=== PATIENT | male | born 1960 | race Caucasian/White ===

== ENCOUNTER 2020-06-07 17:35 | Inpatient (IN) | payer BC, SELFPAY ==
[2020-06-07 17:51] VITALS: BP 119/81; PULSE 88; RESP 16; TEMP 36.3; O2SAT 94
[2020-06-07 17:56] VITALS: BMI 26.9
[2020-06-07 18:09] VITALS: BMI 26.9
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
[2020-06-07] MEDS: Haloperidol Lactate 10 MG/5 ML UDC 2 MG NG (21:28)
[2020-06-07] MEDS: Latanoprost 0.005% 1 Bottle 1 DRP EACH EYE (21:47)
[2020-06-07] MEDS: Jevity 1.5 1,000 ML 70 ML GT (21:47)
[2020-06-08] MEDS: Famotidine 20 MG Tablet NG ×2 (05:28→18:29)
[2020-06-08] MEDS: amLODIPine 5 MG Tablet NG (05:28)
[2020-06-08] MEDS: Valproic Acid 250 MG/5 ML UDC NG ×2 (05:28→18:28)
[2020-06-08] MEDS: Clopidogrel Bisulfate 75 MG Tablet NG (05:28)
[2020-06-08] MEDS: levETIRAcetam Oral Solution 500 MG/5 ML 1000 MG GT ×2 (05:29→18:27)
[2020-06-08] MEDS: Haloperidol Lactate 10 MG/5 ML UDC 2 MG NG ×3 (05:29→22:15)
[2020-06-08] MEDS: Senna/Docusate Sodium 1 Tablet GT ×2 (05:30→18:28)
[2020-06-08] MEDS: Polyethylene Glycol 3350 17 GM PACKET GT (05:30)
[2020-06-08 05:33] VITALS: BP 154/98; PULSE 102; RESP 18; TEMP 36.8; O2SAT 95
[2020-06-08] MEDS: Metoprolol Tartrate 50 MG Tablet PO ×2 (05:33→18:29)
[2020-06-08 05:40] LABS: Absolute Neutrophil Count 4.6 X10^3/uL (2.0-7.7); Basophil# 0.04 X10^3/uL; Basophil% 0.5 % (0-1); Eosinophil# 0.18 X10^3/uL; Eosinophils% 2.2 % (0-5); Hematocrit 40.6 % (40-54); Hemoglobin 12.5 g/dL (13.0-16.5); Lymphocyte % 30.9 % (19-41); Mean Corp Hgb Conc 30.8 g/dL (32-36); Mean Corpuscular Hgb 27.2 pg (27.0-32.0); Mean Corpuscular Volume 88.5 fL (80-94); Monocyte% 9.9 % (0-10); NRBC Flagged by Analyzer 0 % (0-5); Neutrophil # 4.56 X10^3/uL (2.7-7.7); Neutrophil % 56.4 % (47-70); Platelet Count 380 K/mm3 (150-450); RBC Distribution Width SD 41.7 fl (35.1-43.9); Red Blood Count 4.59 M/mm3 (4.6-6.2); White Blood Count 8.1 K/mm3 (4.4-11.0)
[2020-06-08 05:58] LABS: Anion Gap 4 (5-15); BUN 20 mg/dL (7-18); BUN/Creat Ratio 24.9 RATIO (10-20); Calcium,Total 8.7 mg/dL (8.5-10.1); Chloride 104 mmol/L (98-107); EST Glomerular Filtration Rate 105 mL/min (>60); Est Glom Filt Rate - Afr Amer 127 mL/min (>60); Estimated Creatinine Clearance 110.47 ml/min; Glucose 124 mg/dL (74-106); Sodium Level 137 mmol/L (136-145)
[2020-06-08 06:38] LABS: Probe Check PASS; Specimen Processing Control PASS
--- NOTE | 2020-06-08 08:42 | NURSING ---
Surgical Tech Note: Called resident's sonBigg to gather information for activity assessment and review visitation policy. See activity assessment.
--- NOTE | 2020-06-08 09:46 | CASEMGMT ---
Social Work Unable to complete admission assessment with pt. Information gathered was from son. Could not discuss code status or MOLST form with patient. No POA on file. Teri Gardner, CEASAR TYSONW
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
[2020-06-08] MEDS: Tuberculin,Purif.prot.deriv. 50 TU/ML Vial 5 ML ID (10:05)
--- NOTE | 2020-06-08 11:39 | NURSING ---
Director Of Analytical Development Note: Facetime call with Resident to sonBigg. Res smiled, verbalized, Big dog- nickname for son. Verblized I love you man. Son thankful for call.
[2020-06-08] MEDS: Jevity 1.5 1,000 ML 70 ML GT (13:07)
[2020-06-08 14:25] VITALS: BP 137/73; PULSE 82; RESP 16; TEMP 36.9; O2SAT 97
--- NOTE | 2020-06-08 15:24 | CHAPLAIN ---
Type of Pastoral Visit _x__ Initial Visit ___ Follow-up Visit ___ On-call Visit ___ General Patient Visit ___ Spiritual Assessment ___ Family Conference ___ Bereavement ___ Rapid Response ___ Code Blue ___ Other (describe below) Pastoral Care Referral From _x__ Patient ___ Family ___ Nurse ___ Physician ___ Machine Set Up Operator Paper Goods ___ Entry Level Marketing Assistant ___ Other (describe below) Sacrament/Intervention ___ Active listening ___ Anointing ___ Mormonism ___ Bereavement ___ Communion ___ Laura exploration ___ ___ Life review ___ Prayer ___ Reconciliation ___ Sacrament of Sick _x__ Supportive presence ___ Wedding ___ Other (describe below) Pastoral Comments patient opened eyes at call of his name; pt did not engage in conversation but did respond to two questions with day by day and do what you want; gave time for patient to contribute to conversation; repeated offer of presence and support to pt now and for the future
[2020-06-08 18:29] VITALS: PULSE 82
[2020-06-08] MEDS: Latanoprost 0.005% 1 Bottle 1 DRP EACH EYE (22:14)
[2020-06-09 00:40] LABS: Bedside Glucose 131 mg/dL (70-110)
[2020-06-09 06:16] VITALS: BP 155/89; PULSE 88; RESP 16; TEMP 36.8; O2SAT 95
[2020-06-09] MEDS: Valproic Acid 250 MG/5 ML UDC NG ×2 (06:21→17:18)
[2020-06-09] MEDS: amLODIPine 5 MG Tablet NG (06:22)
[2020-06-09] MEDS: levETIRAcetam Oral Solution 500 MG/5 ML 1000 MG GT ×2 (06:22→17:18)
[2020-06-09] MEDS: Clopidogrel Bisulfate 75 MG Tablet NG (06:22)
[2020-06-09 06:23] VITALS: BP 155/89; PULSE 88
[2020-06-09] MEDS: Haloperidol Lactate 10 MG/5 ML UDC 2 MG NG ×3 (06:23→21:14)
[2020-06-09] MEDS: Famotidine 20 MG Tablet NG ×2 (06:23→17:20)
[2020-06-09] MEDS: Metoprolol Tartrate 50 MG Tablet GT ×2 (06:23→17:19)
[2020-06-09] MEDS: Menthol/Lanolin/Calamine/Znox 113 GM Tube 1 APPLIC TOPICAL ×2 (06:29→21:14)
[2020-06-09] MEDS: Jevity 1.5 1,000 ML 70 ML GT ×2 (06:33→23:56)
[2020-06-09 06:35] LABS: Bedside Glucose 119 mg/dL (70-110)
[2020-06-09 14:30] VITALS: BP 132/83; PULSE 85; RESP 18; TEMP 36; O2SAT 96
[2020-06-09 17:19] VITALS: BP 132/83; PULSE 85
[2020-06-09] MEDS: Latanoprost 0.005% 1 Bottle 1 DRP EACH EYE (21:13)
[2020-06-09 23:07] VITALS: PULSE 84; RESP 16; O2SAT 95
[2020-06-10] MEDS: levETIRAcetam Oral Solution 500 MG/5 ML 1000 MG GT ×2 (06:25→17:46)
[2020-06-10] MEDS: Haloperidol Lactate 10 MG/5 ML UDC 2 MG NG ×3 (06:26→22:17)
[2020-06-10 06:27] VITALS: BP 141/93; PULSE 98
[2020-06-10] MEDS: Metoprolol Tartrate 50 MG Tablet GT ×2 (06:27→17:45)
[2020-06-10] MEDS: Famotidine 20 MG Tablet NG ×2 (06:27→17:45)
[2020-06-10] MEDS: Clopidogrel Bisulfate 75 MG Tablet NG (06:27)
[2020-06-10] MEDS: amLODIPine 5 MG Tablet NG (06:27)
[2020-06-10] MEDS: Valproic Acid 250 MG/5 ML UDC NG ×2 (06:27→17:47)
[2020-06-10 06:30] LABS: Bedside Glucose 120 mg/dL (70-110)
[2020-06-10] MEDS: Nystatin Powder 15gm Bottle 1 APPLIC TOPICAL ×2 (06:35→22:25)
[2020-06-10] MEDS: Menthol/Lanolin/Calamine/Znox 113 GM Tube 1 APPLIC TOPICAL ×3 (06:37→22:25)
[2020-06-10 06:38] VITALS: RESP 16; TEMP 36.6; O2SAT 94
--- NOTE | 2020-06-10 11:06 | NURSING ---
up dated son and son also talked to his dad on phone.
[2020-06-10 12:45] VITALS: PULSE 83; RESP 18; O2SAT 96
--- NOTE | 2020-06-10 14:02 | PCA ---
Called to schedule appointment with Dr. Adrien Genao (neurosurgery). Per office only need appointment if there is an issue. As needed. Nursing aware
[2020-06-10 14:03] VITALS: BP 135/79; PULSE 83; RESP 17; TEMP 36.8; O2SAT 97
--- NOTE | 2020-06-10 14:09 | NURSING ---
8mg of haloperidol wasted in destroyer due to order only called for 2mg. witnessed by armando berg
[2020-06-10] MEDS: Jevity 1.5 1,000 ML 70 ML GT (16:09)
[2020-06-10 17:45] VITALS: BP 135/79; PULSE 83
[2020-06-10] MEDS: Latanoprost 0.005% 1 Bottle 1 DRP EACH EYE (22:17)
[2020-06-11 06:00] VITALS: RESP 16; TEMP 37.2; O2SAT 93
[2020-06-11] MEDS: Haloperidol Lactate 10 MG/5 ML UDC 2 MG NG ×2 (06:24→13:05)
[2020-06-11] MEDS: Valproic Acid 250 MG/5 ML UDC NG (06:24)
[2020-06-11] MEDS: Famotidine 20 MG Tablet NG (06:24)
[2020-06-11 06:25] VITALS: BP 140/89; PULSE 84
[2020-06-11] MEDS: amLODIPine 5 MG Tablet NG (06:25)
[2020-06-11] MEDS: Metoprolol Tartrate 50 MG Tablet GT ×2 (06:25→17:31)
[2020-06-11] MEDS: levETIRAcetam Oral Solution 500 MG/5 ML 1000 MG GT ×2 (06:25→17:30)
[2020-06-11] MEDS: Nystatin Powder 15gm Bottle 1 APPLIC TOPICAL ×2 (06:25→20:57)
[2020-06-11] MEDS: Clopidogrel Bisulfate 75 MG Tablet NG (06:26)
[2020-06-11 06:30] LABS: Bedside Glucose 135 mg/dL (70-110)
[2020-06-11] MEDS: Jevity 1.5 1,000 ML 70 ML GT (06:37)
--- NOTE | 2020-06-11 07:29 | NURSING ---
Dr. Clark notified of patient continuing to have loose stools with the tube feed. New orders given for KUB.
--- NOTE | 2020-06-11 07:31 | RAD_ITS ---
STUDY: X-RAY - ABDOMEN/PELVIS REASON FOR EXAM: Male, 59 years old. DIARRHEA TECHNIQUE: Single AP view of the abdomen / pelvis. COMPARISON: None. FINDINGS: Percutaneous gastrostomy tube. Inferior vena cava filter. There is an unremarkable bowel gas pattern. The visualized liver, spleen and kidneys are grossly normal in size and morphology. Normal soft tissue structures. Normal visualized osseous structures. RAD/Abdomen Single View (Portable) IMPRESSION: Normal x-ray examination of the abdomen and pelvis. Electronically Signed: Ron Lowery MD at 9:00 EDT Tel , Service support ,
[2020-06-11 13:47] VITALS: BP 121/87; PULSE 90; RESP 18; TEMP 36.7; O2SAT 97
--- NOTE | 2020-06-11 13:54 | NURSING ---
Staff assisted with facetime with patient's son
[2020-06-11] MEDS: Valproic Acid 250 MG/5 ML UDC GT (17:30)
[2020-06-11 17:31] VITALS: BP 143/89; PULSE 88
[2020-06-11] MEDS: Famotidine 20 MG Tablet GT (17:31)
[2020-06-11] MEDS: Menthol/Lanolin/Calamine/Znox 113 GM Tube 1 APPLIC TOPICAL (20:56)
[2020-06-11] MEDS: Latanoprost 0.005% 1 Bottle 1 DRP EACH EYE (20:59)
[2020-06-11] MEDS: Haloperidol Lactate 10 MG/5 ML UDC 2 MG GT (21:01)
[2020-06-11 21:05] VITALS: PULSE 76; RESP 16; O2SAT 95
[2020-06-12] MEDS: Jevity 1.5 1,000 ML 70 ML GT ×2 (01:27→18:26)
[2020-06-12 04:02] VITALS: BP 147/95; PULSE 85; RESP 16; TEMP 36.7; O2SAT 96
[2020-06-12] MEDS: levETIRAcetam Oral Solution 500 MG/5 ML 1000 MG GT ×2 (04:07→18:33)
[2020-06-12] MEDS: amLODIPine 5 MG Tablet GT (04:07)
[2020-06-12 04:08] VITALS: BP 147/95; PULSE 85
[2020-06-12] MEDS: Famotidine 20 MG Tablet GT ×2 (04:08→18:32)
[2020-06-12] MEDS: Valproic Acid 250 MG/5 ML UDC GT ×2 (04:08→18:33)
[2020-06-12] MEDS: Clopidogrel Bisulfate 75 MG Tablet GT (04:08)
[2020-06-12] MEDS: Metoprolol Tartrate 50 MG Tablet GT ×2 (04:08→18:33)
[2020-06-12] MEDS: Haloperidol Lactate 10 MG/5 ML UDC 2 MG GT ×3 (04:09→20:19)
[2020-06-12] MEDS: Nystatin Powder 15gm Bottle 1 APPLIC TOPICAL ×2 (04:10→20:21)
[2020-06-12] MEDS: Menthol/Lanolin/Calamine/Znox 113 GM Tube 1 APPLIC TOPICAL ×2 (04:10→20:20)
[2020-06-12 06:15] LABS: Bedside Glucose 131 mg/dL (70-110)
[2020-06-12 14:04] VITALS: BP 131/74; PULSE 92; RESP 18; TEMP 36.6; O2SAT 94
--- NOTE | 2020-06-12 16:37 | NURSING ---
This nurse is aware of Vital Signs that were taken today around 1400.
[2020-06-12 18:33] VITALS: PULSE 92
[2020-06-12] MEDS: Latanoprost 0.005% 1 Bottle 1 DRP EACH EYE (20:21)
[2020-06-13 04:44] VITALS: BP 144/89; PULSE 88; RESP 16; TEMP 36.7; O2SAT 95
[2020-06-13] MEDS: Haloperidol Lactate 10 MG/5 ML UDC 2 MG GT ×3 (04:46→21:49)
[2020-06-13 04:47] VITALS: BP 144/89; PULSE 88
[2020-06-13] MEDS: levETIRAcetam Oral Solution 500 MG/5 ML 1000 MG GT ×2 (04:47→18:34)
[2020-06-13] MEDS: Metoprolol Tartrate 50 MG Tablet GT ×2 (04:47→18:35)
[2020-06-13] MEDS: Valproic Acid 250 MG/5 ML UDC GT ×2 (04:48→18:36)
[2020-06-13] MEDS: amLODIPine 5 MG Tablet GT (04:48)
[2020-06-13] MEDS: Clopidogrel Bisulfate 75 MG Tablet GT (04:48)
[2020-06-13] MEDS: Famotidine 20 MG Tablet GT ×2 (04:48→18:36)
[2020-06-13] MEDS: Menthol/Lanolin/Calamine/Znox 113 GM Tube 1 APPLIC TOPICAL ×2 (04:59→21:48)
[2020-06-13] MEDS: Nystatin Powder 15gm Bottle 1 APPLIC TOPICAL ×2 (04:59→21:49)
[2020-06-13 06:21] LABS: Bedside Glucose 142 mg/dL (70-110)
[2020-06-13] MEDS: Jevity 1.5 1,000 ML 70 ML GT (10:04)
[2020-06-13 13:32] VITALS: BP 131/77; PULSE 89; RESP 18; TEMP 36.6; O2SAT 93
[2020-06-13 18:35] VITALS: BP 131/77; PULSE 89
[2020-06-13] MEDS: Latanoprost 0.005% 1 Bottle 1 DRP EACH EYE (21:48)
[2020-06-13 22:06] VITALS: PULSE 78; RESP 16; O2SAT 94
[2020-06-14] MEDS: Jevity 1.5 1,000 ML 70 ML GT ×2 (01:49→18:45)
[2020-06-14] MEDS: levETIRAcetam Oral Solution 500 MG/5 ML 1000 MG GT ×2 (05:39→18:39)
[2020-06-14] MEDS: Valproic Acid 250 MG/5 ML UDC GT ×2 (05:40→18:39)
[2020-06-14] MEDS: Haloperidol Lactate 10 MG/5 ML UDC 2 MG GT ×3 (05:40→22:36)
[2020-06-14 05:41] VITALS: BP 132/75; PULSE 86
[2020-06-14] MEDS: Metoprolol Tartrate 50 MG Tablet GT ×2 (05:41→18:40)
[2020-06-14] MEDS: Famotidine 20 MG Tablet GT ×2 (05:41→18:40)
[2020-06-14] MEDS: Clopidogrel Bisulfate 75 MG Tablet GT (05:41)
[2020-06-14] MEDS: amLODIPine 5 MG Tablet GT (05:41)
[2020-06-14] MEDS: Menthol/Lanolin/Calamine/Znox 113 GM Tube 1 APPLIC TOPICAL ×2 (05:45→22:36)
[2020-06-14] MEDS: Nystatin Powder 15gm Bottle 1 APPLIC TOPICAL ×2 (05:45→22:37)
[2020-06-14 05:46] VITALS: RESP 16; TEMP 37; O2SAT 96
[2020-06-14 09:10] LABS: Bedside Glucose 142 mg/dL (70-110)
[2020-06-14 13:00] VITALS: PULSE 73; RESP 18; O2SAT 94
--- NOTE | 2020-06-14 13:19 | MDS.RN ---
attempted to completed pain interview for MDS, resident not verbally responding to questions, will complete staff assessment for pain.
[2020-06-14 13:48] VITALS: BP 118/75; PULSE 88; RESP 15; TEMP 36.6; O2SAT 97
--- NOTE | 2020-06-14 14:13 | NURSING ---
wound photo: back
--- NOTE | 2020-06-14 16:50 | NURSING ---
son called in and this nurse gave up date and handed phone to pt to talk to son.
[2020-06-14 18:40] VITALS: BP 118/75; PULSE 88
[2020-06-14] MEDS: Latanoprost 0.005% 1 Bottle 1 DRP EACH EYE (22:36)
[2020-06-15 05:00] VITALS: TEMP 36.6; O2SAT 94
[2020-06-15 05:49] LABS: Absolute Lymphocyte Count 2.31 X10^3/uL (0.83-4.51); Absolute Neutrophil Count 5.5 X10^3/uL (2.0-7.7); Basophil# 0.06 X10^3/uL; Basophil% 0.7 % (0-1); Eosinophil# 0.19 X10^3/uL; Eosinophils% 2.1 % (0-5); Hematocrit 42.7 % (40-54); Hemoglobin 13.2 g/dL (13.0-16.5); Lymphocyte # 2.31 X10^3/ul (4.0); Lymphocyte % 25.4 % (19-41); Mean Corp Hgb Conc 30.9 g/dL (32-36); Mean Corpuscular Volume 87.3 fL (80-94); Mean Platelet Vol. 10.4 fl (6.2-12.0); Monocyte# 1.01 X10^3/uL; Monocyte% 11.1 % (0-10); NRBC Flagged by Analyzer 0 % (0-5); Neutrophil # 5.49 X10^3/uL (2.7-7.7); Neutrophil % 60.5 % (47-70); Platelet Count 308 K/mm3 (150-450); RBC Distribution Width CV 13.2 % (11.6-14.6); Red Blood Count 4.89 M/mm3 (4.6-6.2); White Blood Count 9.1 K/mm3 (4.4-11.0)
[2020-06-15 06:26] LABS: Bedside Glucose 132 mg/dL (70-110)
[2020-06-15 06:30] LABS: Anion Gap 4 (5-15); BUN 18 mg/dL (7-18); BUN/Creat Ratio 23.3 RATIO (10-20); Calcium,Total 8.7 mg/dL (8.5-10.1); Chloride 106 mmol/L (98-107); Creatinine, Serum 0.77 mg/dL (0.70-1.30); EST Glomerular Filtration Rate 109 mL/min (>60); Est Glom Filt Rate - Afr Amer 132 mL/min (>60); Estimated Creatinine Clearance 114.78 ml/min; Glucose 107 mg/dL (74-106); Potassium 3.9 mmol/L (3.5-5.1); Sodium Level 139 mmol/L (136-145)
[2020-06-15 06:50] VITALS: BP 129/78; PULSE 92
[2020-06-15] MEDS: amLODIPine 5 MG Tablet GT (06:50)
[2020-06-15] MEDS: Valproic Acid 250 MG/5 ML UDC GT ×2 (06:50→18:01)
[2020-06-15] MEDS: Haloperidol Lactate 10 MG/5 ML UDC 2 MG GT ×3 (06:50→22:38)
[2020-06-15] MEDS: Metoprolol Tartrate 50 MG Tablet GT ×2 (06:50→18:02)
[2020-06-15] MEDS: levETIRAcetam Oral Solution 500 MG/5 ML 1000 MG GT ×2 (06:50→18:00)
[2020-06-15] MEDS: Famotidine 20 MG Tablet GT ×2 (06:50→18:01)
[2020-06-15] MEDS: Clopidogrel Bisulfate 75 MG Tablet GT (06:50)
[2020-06-15] MEDS: Menthol/Lanolin/Calamine/Znox 113 GM Tube 1 APPLIC TOPICAL ×2 (06:58→22:37)
[2020-06-15] MEDS: Nystatin Powder 15gm Bottle 1 APPLIC TOPICAL ×2 (06:58→22:39)
[2020-06-15] MEDS: Tuberculin,Purif.prot.deriv. 50 TU/ML Vial 5 ML ID (10:48)
[2020-06-15] MEDS: Jevity 1.5 1,000 ML 70 ML GT (10:49)
[2020-06-15 13:20] VITALS: BP 130/75; PULSE 86; RESP 18; TEMP 37.3; O2SAT 96
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
[2020-06-15 18:02] VITALS: PULSE 85
[2020-06-15] MEDS: Latanoprost 0.005% 1 Bottle 1 DRP EACH EYE (22:38)
[2020-06-15 22:40] VITALS: PULSE 74; RESP 16; O2SAT 97
[2020-06-16 04:00] VITALS: BP 133/81; PULSE 96; RESP 16; TEMP 36.6; O2SAT 95
[2020-06-16] MEDS: levETIRAcetam Oral Solution 500 MG/5 ML 1000 MG GT ×2 (04:04→18:00)
[2020-06-16] MEDS: Haloperidol Lactate 10 MG/5 ML UDC 2 MG GT ×3 (04:04→22:58)
[2020-06-16] MEDS: Valproic Acid 250 MG/5 ML UDC GT ×2 (04:05→18:00)
[2020-06-16] MEDS: amLODIPine 5 MG Tablet GT (04:05)
[2020-06-16] MEDS: Famotidine 20 MG Tablet GT ×2 (04:05→18:02)
[2020-06-16 04:06] VITALS: BP 133/81; PULSE 96
[2020-06-16] MEDS: Clopidogrel Bisulfate 75 MG Tablet GT (04:06)
[2020-06-16] MEDS: Menthol/Lanolin/Calamine/Znox 113 GM Tube 1 APPLIC TOPICAL ×2 (04:06→22:58)
[2020-06-16] MEDS: Metoprolol Tartrate 50 MG Tablet GT ×2 (04:06→18:02)
[2020-06-16] MEDS: Nystatin Powder 15gm Bottle 1 APPLIC TOPICAL ×2 (04:07→22:57)
[2020-06-16] MEDS: Jevity 1.5 1,000 ML 70 ML GT (04:11)
[2020-06-16 07:01] LABS: Bedside Glucose 113 mg/dL (70-110)
[2020-06-16 15:19] VITALS: BP 127/80; PULSE 98; RESP 16; TEMP 36.3; O2SAT 96
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
--- NOTE | 2020-06-16 16:32 | NURSING ---
N.O. 1 assist feed, pureed diet thin liquids. shipping and receiving assistant aware and will follow up with [facility] orders
[2020-06-16 16:46] VITALS: BMI 26.5
[2020-06-16 18:02] VITALS: PULSE 98
[2020-06-16] MEDS: Juven (unflavored) Packet 1 PACKET PO (18:33)
[2020-06-16 20:06] VITALS: PULSE 78; RESP 16; O2SAT 95
[2020-06-16] MEDS: Latanoprost 0.005% 1 Bottle 1 DRP EACH EYE (22:58)
[2020-06-17 04:44] VITALS: BP 131/86; PULSE 90; RESP 18; TEMP 36.6; O2SAT 94
[2020-06-17] MEDS: levETIRAcetam 1,000 MG Tablet 1000 MG PO ×2 (04:46→17:02)
[2020-06-17] MEDS: Haloperidol 1 MG Tablet 2 MG PO ×3 (04:46→22:36)
[2020-06-17] MEDS: Clopidogrel Bisulfate 75 MG Tablet PO (04:47)
[2020-06-17] MEDS: Famotidine 20 MG Tablet PO ×2 (04:47→17:01)
[2020-06-17] MEDS: Valproic Acid 250 MG/5 ML UDC PO ×2 (04:47→17:01)
[2020-06-17] MEDS: amLODIPine 5 MG Tablet PO (04:47)
[2020-06-17 04:48] VITALS: BP 131/86; PULSE 90
[2020-06-17] MEDS: Metoprolol Tartrate 50 MG Tablet PO ×2 (04:48→17:01)
[2020-06-17] MEDS: Nystatin Powder 15gm Bottle 1 APPLIC TOPICAL ×2 (04:50→22:35)
[2020-06-17] MEDS: Menthol/Lanolin/Calamine/Znox 113 GM Tube 1 APPLIC TOPICAL ×2 (04:50→22:35)
[2020-06-17 06:21] LABS: Bedside Glucose 103 mg/dL (70-110)
[2020-06-17] MEDS: Juven (unflavored) Packet 1 PACKET PO ×2 (07:57→17:01)
[2020-06-17] MEDS: Jevity 1.5. 1,000 ML Bottle 400 ML GT ×3 (09:42→22:43)
[2020-06-17 10:00] VITALS: PULSE 78; RESP 16
[2020-06-17 14:07] VITALS: BP 128/82; PULSE 110; RESP 16; TEMP 36.8; O2SAT 94
[2020-06-17 17:01] VITALS: PULSE 110
[2020-06-17] MEDS: Latanoprost 0.005% 1 Bottle 1 DRP EACH EYE (22:36)
[2020-06-18 05:00] VITALS: BP 132/95; PULSE 87; RESP 16; TEMP 36.9; O2SAT 96
[2020-06-18] MEDS: Nystatin Powder 15gm Bottle 1 APPLIC TOPICAL ×2 (05:08→22:18)
[2020-06-18] MEDS: Menthol/Lanolin/Calamine/Znox 113 GM Tube 1 APPLIC TOPICAL ×2 (05:08→22:18)
[2020-06-18 05:09] VITALS: BP 132/95; PULSE 87
[2020-06-18] MEDS: Valproic Acid 250 MG/5 ML UDC PO ×2 (05:09→17:00)
[2020-06-18] MEDS: amLODIPine 5 MG Tablet PO (05:09)
[2020-06-18] MEDS: Clopidogrel Bisulfate 75 MG Tablet PO (05:09)
[2020-06-18] MEDS: Famotidine 20 MG Tablet PO ×2 (05:09→16:59)
[2020-06-18] MEDS: levETIRAcetam 1,000 MG Tablet 1000 MG PO ×2 (05:09→16:59)
[2020-06-18] MEDS: Metoprolol Tartrate 50 MG Tablet PO ×2 (05:09→16:59)
[2020-06-18] MEDS: Haloperidol 1 MG Tablet 2 MG PO ×3 (05:10→22:19)
[2020-06-18 06:25] LABS: Bedside Glucose 94 mg/dL (70-110)
[2020-06-18] MEDS: Juven (unflavored) Packet 1 PACKET PO ×2 (08:11→16:54)
[2020-06-18] MEDS: Jevity 1.5. 1,000 ML Bottle 400 ML GT ×3 (09:47→18:37)
[2020-06-18 14:52] VITALS: BP 134/77; PULSE 92; RESP 17; TEMP 36.9; O2SAT 96
--- NOTE | 2020-06-18 16:50 | NURSING ---
pt ate less then 50% for breakfast and lunch. bolus of 400 cc and flush 300 given each time. Pt did have residual of 5 at lunch. RN aware.
[2020-06-18 16:59] VITALS: BP 134/77; PULSE 92
--- NOTE | 2020-06-18 19:02 | NURSING ---
pt only ate 25% for supper. 400cc bolus of Jevity given with 300 flush. 0 residual. pt tolerated well.
[2020-06-18] MEDS: Latanoprost 0.005% 1 Bottle 1 DRP EACH EYE (22:18)
[2020-06-19 05:00] VITALS: BP 135/87; PULSE 93; RESP 18; TEMP 37; O2SAT 95
[2020-06-19 06:09] VITALS: BP 135/87; PULSE 93
[2020-06-19] MEDS: Metoprolol Tartrate 50 MG Tablet PO ×2 (06:09→18:12)
[2020-06-19] MEDS: Famotidine 20 MG Tablet PO ×2 (06:09→18:13)
[2020-06-19] MEDS: Clopidogrel Bisulfate 75 MG Tablet PO (06:09)
[2020-06-19] MEDS: Valproic Acid 250 MG/5 ML UDC PO ×2 (06:09→18:12)
[2020-06-19] MEDS: levETIRAcetam 1,000 MG Tablet 1000 MG PO ×2 (06:09→18:12)
[2020-06-19] MEDS: amLODIPine 5 MG Tablet PO (06:09)
[2020-06-19] MEDS: Menthol/Lanolin/Calamine/Znox 113 GM Tube 1 APPLIC TOPICAL ×2 (06:10→21:16)
[2020-06-19] MEDS: Nystatin Powder 15gm Bottle 1 APPLIC TOPICAL ×2 (06:10→21:17)
[2020-06-19] MEDS: Haloperidol 1 MG Tablet 2 MG PO ×3 (06:10→21:18)
[2020-06-19 06:21] LABS: Bedside Glucose 97 mg/dL (70-110)
--- NOTE | 2020-06-19 09:04 | NURSING ---
Dr Clark updated on pt not eating but approx 25% of meals, boluses given per order. New order for remeron 7.5mg qhs
[2020-06-19] MEDS: Juven (unflavored) Packet 1 PACKET PO ×2 (09:29→18:12)
[2020-06-19 09:30] VITALS: PULSE 80; RESP 18; O2SAT 96
[2020-06-19] MEDS: Jevity 1.5. 1,000 ML Bottle 400 ML GT ×2 (09:50→18:37)
--- NOTE | 2020-06-19 10:18 | NURSING ---
pt ate 25% for breakfast. 0 residual, bolus of 400cc of Jevity and 300 flush given. mouth care given. pt tolerated well.
--- NOTE | 2020-06-19 10:58 | NURSING ---
with permission of pt this nurse trimmed pt mustache at lip area due to hairs getting in mouth and food all up in it. pt thanked this nurse.
--- NOTE | 2020-06-19 13:42 | NURSING ---
CALLED PT SON,NO ANSWER. LEFT MESSAGE.
[2020-06-19 14:08] VITALS: BP 124/88; PULSE 108; RESP 16; TEMP 36.2; O2SAT 95
--- NOTE | 2020-06-19 14:52 | NURSING ---
son called back in and this nurse talked to him then gave pt phone to talk to son.
[2020-06-19 18:12] VITALS: BP 124/88; PULSE 108
[2020-06-19] MEDS: Hydrocortisone 2.5% Crm 1 APPLIC TOPICAL (18:32)
[2020-06-19] MEDS: Mirtazapine 15 MG Tablet 7.5 MG PO (21:18)
[2020-06-19] MEDS: Latanoprost 0.005% 1 Bottle 1 DRP EACH EYE (21:19)
[2020-06-20 05:00] VITALS: BP 122/80; PULSE 86; RESP 18; TEMP 36.5; O2SAT 95
[2020-06-20] MEDS: Menthol/Lanolin/Calamine/Znox 113 GM Tube 1 APPLIC TOPICAL ×2 (05:51→21:42)
[2020-06-20] MEDS: Nystatin Powder 15gm Bottle 1 APPLIC TOPICAL ×2 (05:51→21:41)
[2020-06-20 05:52] VITALS: BP 122/80; PULSE 86
[2020-06-20] MEDS: amLODIPine 5 MG Tablet PO (05:52)
[2020-06-20] MEDS: levETIRAcetam 1,000 MG Tablet 1000 MG PO ×2 (05:52→18:09)
[2020-06-20] MEDS: Valproic Acid 250 MG/5 ML UDC PO ×2 (05:52→18:10)
[2020-06-20] MEDS: Metoprolol Tartrate 50 MG Tablet PO ×2 (05:52→18:10)
[2020-06-20] MEDS: Famotidine 20 MG Tablet PO ×2 (05:52→18:10)
[2020-06-20] MEDS: Clopidogrel Bisulfate 75 MG Tablet PO (05:52)
[2020-06-20] MEDS: Haloperidol 1 MG Tablet 2 MG PO ×3 (05:52→21:41)
[2020-06-20 06:16] LABS: Bedside Glucose 98 mg/dL (70-110)
[2020-06-20] MEDS: Juven (unflavored) Packet 1 PACKET PO ×2 (09:05→18:09)
[2020-06-20] MEDS: Jevity 1.5. 1,000 ML Bottle 400 ML GT ×3 (09:06→18:14)
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
[2020-06-20 14:11] VITALS: BP 129/81; PULSE 104; RESP 16; TEMP 36.6; O2SAT 96
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
[2020-06-20 18:10] VITALS: PULSE 104
[2020-06-20] MEDS: Latanoprost 0.005% 1 Bottle 1 DRP EACH EYE (21:41)
[2020-06-20] MEDS: Mirtazapine 15 MG Tablet 7.5 MG PO (21:43)
[2020-06-20 21:49] VITALS: PULSE 77; RESP 16; O2SAT 97
[2020-06-21 05:00] VITALS: RESP 16; TEMP 36.9; O2SAT 94
[2020-06-21] MEDS: Valproic Acid 250 MG/5 ML UDC PO ×2 (05:18→18:16)
[2020-06-21] MEDS: amLODIPine 5 MG Tablet PO (05:18)
[2020-06-21] MEDS: Clopidogrel Bisulfate 75 MG Tablet PO (05:18)
[2020-06-21] MEDS: Menthol/Lanolin/Calamine/Znox 113 GM Tube 1 APPLIC TOPICAL ×2 (05:18→21:27)
[2020-06-21] MEDS: levETIRAcetam 1,000 MG Tablet 1000 MG PO ×2 (05:18→18:15)
[2020-06-21] MEDS: Nystatin Powder 15gm Bottle 1 APPLIC TOPICAL ×2 (05:18→21:27)
[2020-06-21] MEDS: Famotidine 20 MG Tablet PO ×2 (05:18→18:16)
[2020-06-21] MEDS: Haloperidol 1 MG Tablet 2 MG PO ×3 (05:18→21:29)
[2020-06-21 05:22] VITALS: BP 133/83; PULSE 74
[2020-06-21] MEDS: Metoprolol Tartrate 50 MG Tablet PO ×2 (05:22→18:16)
[2020-06-21 06:21] LABS: Bedside Glucose 110 mg/dL (70-110)
[2020-06-21] MEDS: Juven (unflavored) Packet 1 PACKET PO ×2 (09:46→18:19)
[2020-06-21] MEDS: Jevity 1.5. 1,000 ML Bottle 400 ML GT ×3 (09:49→18:24)
[2020-06-21 10:15] VITALS: PULSE 85; RESP 18; O2SAT 94
--- NOTE | 2020-06-21 13:04 | NURSING ---
PT REFUSED BREAKFAST AND ONLY ATE 25% FOR LUNCH. BOLUS OF 400CC AND 300CC FLUSH GIVEN FOR EACH MEAL. 0 RESIDUALS. PT TOLERATED WELL,BUT VERY VOCAL TODAY. PT ALSO HAD FACE TIME WITH SON THAT THE LEE HELPED WITH. RN AWARE
[2020-06-21 13:26] VITALS: BP 120/86; PULSE 102; RESP 14; TEMP 36.7; O2SAT 95
--- NOTE | 2020-06-21 14:20 | CHAPLAIN ---
Type of Pastoral Visit ___ Initial Visit ___ Follow-up Visit ___ On-call Visit _x__ General Patient Visit ___ Spiritual Assessment ___ Family Conference ___ Bereavement ___ Rapid Response ___ Code Blue ___ Other (describe below) Pastoral Care Referral From ___ Patient ___ Family ___ Nurse ___ Physician ___ Electrical High Tension Tester ___ Cash Management Specialist _x__ Other (describe below) Sacrament/Intervention _x__ Active listening ___ Anointing ___ Catholic ___ Bereavement ___ Communion ___ Laura exploration ___ ___ Life review ___ Prayer ___ Reconciliation ___ Sacrament of Sick _x__ Supportive presence ___ Wedding _x__ Other (describe below) Pastoral Comments [employer] had arranged for son to talk with pt by FaceTime; facilitated this video call between pt and son; also talked with son personally on phone to offer support and listening for concerns; son expresses hope that improvement comes for recovery; pt himself interacted with his son though often in short sentences/responses and crude language; talked with patient after the phone call as he waited for his lunch; pt talking about different topics
--- NOTE | 2020-06-21 16:16 | CASEMGMT ---
Social Work Spoke with son whom requested clinicals be sent to [facility]. Referral made. Will continue to follow. CEASAR MichaudW
[2020-06-21 18:16] VITALS: BP 120/86; PULSE 102
--- NOTE | 2020-06-21 18:49 | NURSING ---
PT REFUSED SUPPER. BOLUS OF 400CC OF JEVITY AND 300 FLUSH GIVEN. 0 RESIDUAL. TOLERATED WELL.
[2020-06-21] MEDS: Latanoprost 0.005% 1 Bottle 1 DRP EACH EYE (21:27)
[2020-06-21] MEDS: Mirtazapine 15 MG Tablet 7.5 MG PO (21:28)
[2020-06-22 04:51] VITALS: BP 135/86; PULSE 89; RESP 18; TEMP 36.9; O2SAT 95
[2020-06-22 04:54] VITALS: BP 135/86; PULSE 89
[2020-06-22] MEDS: Metoprolol Tartrate 50 MG Tablet PO ×2 (04:54→17:10)
[2020-06-22] MEDS: amLODIPine 5 MG Tablet PO (04:54)
[2020-06-22] MEDS: Valproic Acid 250 MG/5 ML UDC PO ×2 (04:54→17:11)
[2020-06-22] MEDS: Famotidine 20 MG Tablet PO ×2 (04:55→17:10)
[2020-06-22] MEDS: Clopidogrel Bisulfate 75 MG Tablet PO (04:55)
[2020-06-22] MEDS: levETIRAcetam 1,000 MG Tablet 1000 MG PO ×2 (04:55→17:10)
[2020-06-22] MEDS: Haloperidol 1 MG Tablet 2 MG PO ×3 (04:55→22:07)
[2020-06-22] MEDS: Menthol/Lanolin/Calamine/Znox 113 GM Tube 1 APPLIC TOPICAL ×2 (05:03→22:11)
[2020-06-22] MEDS: Nystatin Powder 15gm Bottle 1 APPLIC TOPICAL ×2 (05:03→22:09)
[2020-06-22 05:45] LABS: Absolute Lymphocyte Count 2.74 X10^3/uL (0.83-4.51); Absolute Neutrophil Count 4.1 X10^3/uL (2.0-7.7); Basophil# 0.05 X10^3/uL; Basophil% 0.6 % (0-1); Eosinophil# 0.19 X10^3/uL; Eosinophils% 2.4 % (0-5); Hematocrit 43.3 % (40-54); Hemoglobin 13.4 g/dL (13.0-16.5); Lymphocyte # 2.74 X10^3/ul (4.0); Lymphocyte % 34.2 % (19-41); Mean Corp Hgb Conc 30.9 g/dL (32-36); Mean Corpuscular Hgb 26.7 pg (27.0-32.0); Mean Corpuscular Volume 86.3 fL (80-94); Mean Platelet Vol. 9.8 fl (6.2-12.0); Monocyte# 0.87 X10^3/uL; Monocyte% 10.9 % (0-10); NRBC Flagged by Analyzer 0 % (0-5); Neutrophil # 4.14 X10^3/uL (2.7-7.7); Neutrophil % 51.7 % (47-70); Platelet Count 272 K/mm3 (150-450); RBC Distribution Width CV 13.4 % (11.6-14.6); RBC Distribution Width SD 41.4 fl (35.1-43.9); Red Blood Count 5.02 M/mm3 (4.6-6.2)
[2020-06-22 06:03] LABS: Anion Gap 5 (5-15); BUN 20 mg/dL (7-18); BUN/Creat Ratio 24.4 RATIO (10-20); Calcium,Total 8.6 mg/dL (8.5-10.1); Chloride 104 mmol/L (98-107); Creatinine, Serum 0.82 mg/dL (0.70-1.30); EST Glomerular Filtration Rate 102 mL/min (>60); Est Glom Filt Rate - Afr Amer 124 mL/min (>60); Estimated Creatinine Clearance 107.78 ml/min; Glucose 100 mg/dL (74-106); Sodium Level 138 mmol/L (136-145)
[2020-06-22 06:16] LABS: Bedside Glucose 111 mg/dL (70-110)
[2020-06-22] MEDS: Jevity 1.5. 1,000 ML Bottle 400 ML GT ×2 (09:19→18:22)
[2020-06-22] MEDS: Juven (unflavored) Packet 1 PACKET PO ×2 (09:19→17:11)
--- NOTE | 2020-06-22 09:42 | NURSING ---
PT REFUSED BREAKFAST,JEVITY 400CC GIVEN WITH 300 FLUSH PER ORDER. PLACEMENT VERIFIED, 0 RESIDUAL. PT TOLERATED WELL.
--- NOTE | 2020-06-22 12:44 | NURSING ---
PT ATE 50% FOR LUNCH.
[2020-06-22 13:55] VITALS: BP 172/77; PULSE 102; RESP 18; TEMP 36.7; O2SAT 98
[2020-06-22 15:34] VITALS: BP 139/93; PULSE 99
[2020-06-22 17:10] VITALS: BP 139/93; PULSE 99
[2020-06-22] MEDS: Hydrocortisone 2.5% Crm 1 APPLIC TOPICAL (18:21)
--- NOTE | 2020-06-22 18:55 | NURSING ---
PT ATE 25%. BOLUS OF JEVITY 400CC AND 300 FLUSH GIVEN. 0 RESIDUAL AND PLACEMENT VERIFIED. PT TOLERATED WELL BUT WAS VERY VOCAL ON WORDS.
[2020-06-22] MEDS: Latanoprost 0.005% 1 Bottle 1 DRP EACH EYE (22:06)
[2020-06-22] MEDS: Mirtazapine 15 MG Tablet 7.5 MG PO (22:06)
[2020-06-22 22:20] VITALS: PULSE 88; RESP 16; O2SAT 96
[2020-06-23 05:00] VITALS: BP 128/86; PULSE 84; RESP 16; TEMP 37.2; O2SAT 95
[2020-06-23 06:25] LABS: Bedside Glucose 99 mg/dL (70-110)
[2020-06-23 06:57] VITALS: BP 128/86; PULSE 84
[2020-06-23] MEDS: levETIRAcetam 1,000 MG Tablet 1000 MG PO ×2 (06:57→17:53)
[2020-06-23] MEDS: Clopidogrel Bisulfate 75 MG Tablet PO (06:57)
[2020-06-23] MEDS: Famotidine 20 MG Tablet PO ×2 (06:57→17:54)
[2020-06-23] MEDS: Metoprolol Tartrate 50 MG Tablet PO ×2 (06:57→17:54)
[2020-06-23] MEDS: Valproic Acid 250 MG/5 ML UDC PO ×2 (06:58→17:54)
[2020-06-23] MEDS: amLODIPine 5 MG Tablet PO (06:58)
[2020-06-23] MEDS: Haloperidol 1 MG Tablet 2 MG PO ×3 (06:58→22:26)
[2020-06-23] MEDS: Menthol/Lanolin/Calamine/Znox 113 GM Tube 1 APPLIC TOPICAL ×2 (07:00→22:24)
[2020-06-23] MEDS: Nystatin Powder 15gm Bottle 1 APPLIC TOPICAL ×2 (07:00→22:24)
[2020-06-23] MEDS: Juven (unflavored) Packet 1 PACKET PO ×2 (09:00→17:53)
[2020-06-23] MEDS: Jevity 1.5. 1,000 ML Bottle 400 ML GT ×2 (09:25→14:54)
[2020-06-23 09:28] VITALS: PULSE 78; RESP 16; O2SAT 95
[2020-06-23 13:38] VITALS: BP 123/84; PULSE 94; RESP 16; TEMP 36.6; O2SAT 96
--- NOTE | 2020-06-23 14:02 | CASEMGMT ---
Addendum entered by Teri Gardner 06/23/20 15:49: Referred to [facility] RU - due to pt being co-treated and dependentx2, RU denied. Original Note: Social Work Spoke with patient's son to update on insurance/DC plans. Explained to son, insurance has approved pt through 06/27 and would complete update 06/28 due to holiday; however, insurance stated if no progress has been made, a DC date will be set, which would be same day; therefore, pt would need to DC 06/28 by midnight or pay privately. Son having difficulty understanding that even though the SNF benefit period is 60 days, pt still needs to meet criteria to remain - the 60 days are not guaranteed. Also updated son that [facility] denied pt for being too low functioning at this time. Son adamant about finding a place for pt to DC to, and he does not care about location. Explained to son the only other options are for pt to apply for Medicaid or pay privately at a SNF. The son is adamant about not applying for Medicaid and he does not have the funds to pay privately. Son states the [employer] is responsible for ensuring pt gets the rehab he needs. Son requested for SW to email above explanation to present to the [employer] for possible coverage. Email sent. SW referred to several Inpatient Rehab Units, despite explanation to son that pt does not appear to be eligible for that level of care yet, and insurance can still deny that stay. Referred to [facility]. Thus far, [facility] has denied as well. Will continue to assist and await outcome. Son is aware pt may be discharging 06/28. Teri Gardner, CEASAR TYSONW
--- NOTE | 2020-06-23 15:08 | CASEMGMT ---
Social Work Contacted Misa at [facility] to follow up on son getting assigned a major case detective to assist with discharge plans. Misa states the case is still open and no one has been assigned but sent out a 3rd request. Explained the situation and DC could potentially be 98. iMsa stated from her understanding the pt has transitioned into jail care since he is not progressing with skilled care/therapy, and pt's benefit does not cover jail care. She is not aware of any other avenues. Will continue to follow. Teri Gardner, ICE PLANT OPERATOR REMARKETING REP
--- NOTE | 2020-06-23 16:15 | CASEMGMT ---
Social work Transitional Care Unit Collaboration with [facility] social work case manager Teri Gardner regarding discharge planning for this patient, and current status in working with patient's son for plan. In efforts to assist with discharge planning, phone call with patient's son Bigg Jr. Israel to review the status of patient's discharge plan and what the viable options are for this patient when cut by insurance. Discussed anticipated timeframe related to what the insurance will approve. Sanju Pride voiced agreement that patient is not ready to return home, and that sanju Pride is not able to provide 24-hour care at home for patient. Educated sanju Pride to rehab level of care, long term level of care, intermediate level of care, and limitations as to what patient's insurance provides for. Reviewed with sanju Pride the rehab referrals which have been made for patient, and that patient has been declined by all rehab units thus far. Sanju Pride discussed hope that he will be able to get a hospice case manager through the patient's insurance and that something will be able to be sorted out to get long term coverage continued. Discussed with Bigg that while things are sorted out as far as viability of continued long term coverage, it is also important to be working on a second plan concurrently, just in case the first plan sanju Pride hopes for does not come through. Broached with the son his openness to applying for Medicaid to assist with a second concurrent plan, which would cover intermediate level of care at a nursing facility. At the time that Medicaid was broached, the son voiced anger and frustration and no longer wanted to continue conversation due to wanting to be in a calmer state when he visited with the patient this evening. This financial underwriter acknowledged that it would be important to have a nice, and calm, visit with the patient and agreed that this conversation could continue at another time. Bigg agreed to an 1130 phone conversation on 06/24/2020 to further discuss. During phone conversation supportive listening offered regarding the son's concerns for patient being able to have limited visitation, which is due to the constraints of the COVID pandemic. The son voiced belief the patient would be doing better and progressing faster if allowed to have more visits. Acknowledged how difficult this time is for many, including patient and family. Sanju Pride reports it has always just been patient and Son Bigg, so this change with patient has been hard. Explored whether there are any other children, and sanju Pride reported there are none worth talking about. Bigg does reports patient lives in own home and son Bigg lives across the road. . Plan: Social work will continue to follow and assist as needs arise. -ALLY King, CUTTING ROOM SUPERVISOR
[2020-06-23 17:54] VITALS: PULSE 86
[2020-06-23] MEDS: Latanoprost 0.005% 1 Bottle 1 DRP EACH EYE (22:25)
[2020-06-23] MEDS: Mirtazapine 15 MG Tablet 7.5 MG PO (22:26)
[2020-06-24 05:00] VITALS: BP 146/94; PULSE 90; RESP 16; TEMP 36.8; O2SAT 96
[2020-06-24] MEDS: levETIRAcetam 1,000 MG Tablet 1000 MG PO ×2 (05:15→18:32)
[2020-06-24] MEDS: Haloperidol 1 MG Tablet 2 MG PO ×3 (05:15→23:19)
[2020-06-24] MEDS: Valproic Acid 250 MG/5 ML UDC PO ×2 (05:15→18:31)
[2020-06-24 05:16] VITALS: BP 146/94; PULSE 90
[2020-06-24] MEDS: Metoprolol Tartrate 50 MG Tablet PO ×2 (05:16→18:33)
[2020-06-24] MEDS: amLODIPine 5 MG Tablet PO (05:16)
[2020-06-24] MEDS: Clopidogrel Bisulfate 75 MG Tablet PO (05:16)
[2020-06-24] MEDS: Famotidine 20 MG Tablet PO ×2 (05:16→18:32)
[2020-06-24] MEDS: Nystatin Powder 15gm Bottle 1 APPLIC TOPICAL ×2 (05:17→23:18)
[2020-06-24] MEDS: Menthol/Lanolin/Calamine/Znox 113 GM Tube 1 APPLIC TOPICAL ×2 (05:17→23:18)
[2020-06-24 06:20] LABS: Bedside Glucose 110 mg/dL (70-110)
--- NOTE | 2020-06-24 09:00 | NURSING ---
PT DID NOT EAT BREAKFAST THIS am. PEG flushed with 150cc, Jevity bolus 400 mL given and PEG flushed again with 150cc.
[2020-06-24] MEDS: Juven (unflavored) Packet 1 PACKET PO ×2 (09:06→18:31)
[2020-06-24] MEDS: Jevity 1.5. 1,000 ML Bottle 400 ML GT ×3 (09:27→18:32)
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
[2020-06-24 14:01] VITALS: BP 123/77; PULSE 104; RESP 18; TEMP 36.9; O2SAT 94
--- NOTE | 2020-06-24 14:36 | CASEMGMT ---
Social Work Transitional Care Unit Collaboration with CEASAR Michaud for TCU. This display card writer with phone to patient's son Bigg Wood . today. Sanju Pride reports he was able to speak to the insurance today, and indicated some of his questions were answered. Son also reports was able to speak to Teri again today. Sanju Pride voiced willingness to fill out Medicaid application today, but that uncertain whether will be willing to use said benefit. The sanju Pride reports the patient may have a 401(k), which money could possibly be pulled from so will have to look into this, may consider using this over using the Medicaid benefit, if this option would protect patient's limited assets. This display card writer reinforced that by allowing Medicaid application to be completed and a pending Medicaid number to be obtained then this would allow for Mediad payment if qualifies and if family decides to use this benefit. Without an application started the only option is for patient/family to come up with finances to pay for the senior care. The son agrees to fill Medicaid application today, scan and email back to the hospital. Discussed with sanju Pride as to what nursing facilities he would agree for patient to go to. Sanju Pride reports he was given list by Teri. [facility] choice is [facility] in [place], and next choice would be [facility] in [place]. Son unable to identify a third choice at this time, but does reports that does not want patient referred to [facility]. Handoff report given to RICHARD Michaud elementary school social worker. Plan: Social work continues to follow and assist with discharge planning. -ALLY King, CEASAR
--- NOTE | 2020-06-24 14:47 | CASEMGMT ---
Social Work All Inpatient Rehab's have denied patient for too low functioning at this time. Continue to have conversations with son to discuss alternative plan. Son upset that insurance update was not going to be submitted until 06/28. Spoke with [facility] and is going provide verbal clinical update to insurance 06/27 instead of 06/28. Updated son - son appreciative. After several discussions, collaboration with MENDEL Goodson, reexplanation to son that pt may have to DC 06/28, exploration to applying for Medicaid - son agreed to complete application. Son provided [facility] and [facility] as SNFs for SW to refer to. Son completed application. Fax[facility]. Attempted to contact a rn case mgr but unsuccessful. Referred to SNFs. Left messages with both facilities to f/u. Will continue to follow. CEASAR MichaudW
[2020-06-24 18:33] VITALS: BP 125/77; PULSE 98
--- NOTE | 2020-06-24 19:04 | NURSING ---
Pt ate 25%. 400 mL Bolus OF Jevity given. PEG flushed with 150 cc before and after Jevity bolus.
[2020-06-24 23:20] VITALS: RESP 16
[2020-06-24] MEDS: Mirtazapine 15 MG Tablet 7.5 MG PO (23:21)
[2020-06-24] MEDS: Latanoprost 0.005% 1 Bottle 1 DRP EACH EYE (23:21)
[2020-06-25 04:45] VITALS: BP 139/89; PULSE 93; RESP 16; O2SAT 95
[2020-06-25] MEDS: Clopidogrel Bisulfate 75 MG Tablet PO (04:46)
[2020-06-25 04:47] VITALS: BP 139/89; PULSE 93
[2020-06-25] MEDS: Famotidine 20 MG Tablet PO ×2 (04:47→17:53)
[2020-06-25] MEDS: FLUoxetine 10 MG Capsule PO (04:47)
[2020-06-25] MEDS: levETIRAcetam 1,000 MG Tablet 1000 MG PO ×2 (04:47→17:52)
[2020-06-25] MEDS: amLODIPine 5 MG Tablet PO (04:47)
[2020-06-25] MEDS: Metoprolol Tartrate 50 MG Tablet PO ×2 (04:47→17:52)
[2020-06-25] MEDS: Haloperidol 1 MG Tablet 2 MG PO ×3 (04:48→21:26)
[2020-06-25] MEDS: Valproic Acid 250 MG/5 ML UDC PO ×2 (04:48→17:53)
[2020-06-25] MEDS: Menthol/Lanolin/Calamine/Znox 113 GM Tube 1 APPLIC TOPICAL ×2 (04:50→21:26)
[2020-06-25] MEDS: Nystatin Powder 15gm Bottle 1 APPLIC TOPICAL ×2 (05:00→21:26)
[2020-06-25 08:11] LABS: Bedside Glucose 103 mg/dL (70-110)
[2020-06-25] MEDS: Juven (unflavored) Packet 1 PACKET PO ×2 (08:59→17:52)
[2020-06-25] MEDS: Jevity 1.5. 1,000 ML Bottle 400 ML GT (09:14)
[2020-06-25 10:00] VITALS: PULSE 74; RESP 16; O2SAT 97
--- NOTE | 2020-06-25 13:47 | CASEMGMT ---
Social Work Per CAM Williamson on TCU [facility] has no open beds. Telephone call to [facility], this dialysis social worker left voicemail for Michelle, director of field coordination. Per nursing staff at [facility] Michelle is computer lab para professional this weekend. Nursing staff provided this dialysis social worker with Michelle's number: [phone]. This social work left voicemail with Michelle requesting a return phone call to obtain status of referral. Telephone call to patient son to provide above update. Voicemail left. MENDEL Burgess
[2020-06-25 13:58] VITALS: BP 132/89; PULSE 114; RESP 18; TEMP 37.1; O2SAT 97
--- NOTE | 2020-06-25 14:50 | CASEMGMT ---
Social Work Telephone call from patient son, Bigg. Updated Bigg on current status of halfway referrals. Bigg with no further questions. Social Work to continue to follow. Sis Bales MSW, MENDEL
[2020-06-25 17:52] VITALS: PULSE 114
[2020-06-25] MEDS: Mirtazapine 15 MG Tablet 7.5 MG PO (21:25)
[2020-06-25] MEDS: Latanoprost 0.005% 1 Bottle 1 DRP EACH EYE (21:25)
[2020-06-26 05:00] VITALS: RESP 16; TEMP 36.7; O2SAT 95
[2020-06-26 06:20] LABS: Bedside Glucose 104 mg/dL (70-110)
[2020-06-26 06:43] VITALS: BP 141/94; PULSE 94
[2020-06-26] MEDS: amLODIPine 5 MG Tablet PO (06:43)
[2020-06-26] MEDS: Valproic Acid 250 MG/5 ML UDC PO ×2 (06:43→17:45)
[2020-06-26] MEDS: levETIRAcetam 1,000 MG Tablet 1000 MG PO ×2 (06:43→17:45)
[2020-06-26] MEDS: FLUoxetine 10 MG Capsule PO (06:43)
[2020-06-26] MEDS: Haloperidol 1 MG Tablet 2 MG PO ×3 (06:43→21:54)
[2020-06-26] MEDS: Famotidine 20 MG Tablet PO ×2 (06:43→17:45)
[2020-06-26] MEDS: Metoprolol Tartrate 50 MG Tablet PO ×2 (06:43→17:45)
[2020-06-26] MEDS: Clopidogrel Bisulfate 75 MG Tablet PO (06:43)
[2020-06-26] MEDS: Nystatin Powder 15gm Bottle 1 APPLIC TOPICAL ×2 (06:50→21:53)
[2020-06-26] MEDS: Menthol/Lanolin/Calamine/Znox 113 GM Tube 1 APPLIC TOPICAL ×2 (06:51→21:53)
[2020-06-26] MEDS: Juven (unflavored) Packet 1 PACKET PO ×2 (09:00→17:46)
[2020-06-26 09:56] VITALS: PULSE 84; RESP 16; O2SAT 93
[2020-06-26 13:47] VITALS: BP 129/84; PULSE 98; RESP 16; TEMP 36.3; O2SAT 94
--- NOTE | 2020-06-26 15:06 | NURSING ---
Talked with Son Bigg today and he stated he wanted Lex Wood added to contact list and informed me he had given him the [facility] password, Bigg would still like to be primary contact and be the one notified for updates but wants Lex as an authorized person to call and receive information. Son also requested that Stanislaw receives pain medication before therapy to manage pain and maximize productivity during PT/OT
[2020-06-26 17:45] VITALS: PULSE 98
[2020-06-26] MEDS: Latanoprost 0.005% 1 Bottle 1 DRP EACH EYE (21:54)
[2020-06-26] MEDS: Mirtazapine 15 MG Tablet 7.5 MG PO (21:55)
[2020-06-27 05:00] VITALS: BP 159/97; PULSE 92; RESP 18; TEMP 36.6; O2SAT 95
[2020-06-27] MEDS: Nystatin Powder 15gm Bottle 1 APPLIC TOPICAL ×2 (05:41→22:08)
[2020-06-27] MEDS: Haloperidol 1 MG Tablet 2 MG PO ×3 (05:42→22:08)
[2020-06-27] MEDS: Menthol/Lanolin/Calamine/Znox 113 GM Tube 1 APPLIC TOPICAL ×2 (05:42→22:07)
[2020-06-27] MEDS: FLUoxetine 10 MG Capsule PO (05:42)
[2020-06-27 05:43] VITALS: BP 159/97; PULSE 92
[2020-06-27] MEDS: amLODIPine 5 MG Tablet PO (05:43)
[2020-06-27] MEDS: Metoprolol Tartrate 50 MG Tablet PO ×2 (05:43→17:48)
[2020-06-27] MEDS: Clopidogrel Bisulfate 75 MG Tablet PO (05:43)
[2020-06-27] MEDS: Valproic Acid 250 MG/5 ML UDC PO ×2 (05:43→17:48)
[2020-06-27] MEDS: levETIRAcetam 1,000 MG Tablet 1000 MG PO ×2 (05:43→17:48)
[2020-06-27] MEDS: Famotidine 20 MG Tablet PO ×2 (05:43→17:48)
[2020-06-27] MEDS: Polyethylene Glycol 3350 17 GM PACKET PO (05:47)
[2020-06-27 06:16] LABS: Bedside Glucose 99 mg/dL (70-110)
[2020-06-27] MEDS: Juven (unflavored) Packet 1 PACKET PO ×2 (08:15→17:48)
[2020-06-27] MEDS: Acetaminophen 325 MG Tablet 650 MG PO ×2 (08:19→15:34)
[2020-06-27 14:57] VITALS: BP 141/85; PULSE 116; RESP 16; TEMP 36.5; O2SAT 98
[2020-06-27 17:48] VITALS: PULSE 116
[2020-06-27] MEDS: Mirtazapine 15 MG Tablet 7.5 MG PO (22:08)
[2020-06-27] MEDS: Latanoprost 0.005% 1 Bottle 1 DRP EACH EYE (22:08)
[2020-06-28 05:00] VITALS: BP 121/88; PULSE 88; RESP 18; TEMP 36.5; O2SAT 95
[2020-06-28] MEDS: Menthol/Lanolin/Calamine/Znox 113 GM Tube 1 APPLIC TOPICAL ×2 (05:59→22:02)
[2020-06-28] MEDS: FLUoxetine 10 MG Capsule PO (05:59)
[2020-06-28] MEDS: Valproic Acid 250 MG/5 ML UDC PO ×2 (05:59→17:59)
[2020-06-28] MEDS: Haloperidol 1 MG Tablet 2 MG PO ×3 (05:59→22:02)
[2020-06-28] MEDS: Clopidogrel Bisulfate 75 MG Tablet PO (05:59)
[2020-06-28 06:00] VITALS: BP 121/88; PULSE 88
[2020-06-28] MEDS: Nystatin Powder 15gm Bottle 1 APPLIC TOPICAL ×2 (06:00→22:02)
[2020-06-28] MEDS: Metoprolol Tartrate 50 MG Tablet PO ×2 (06:00→17:59)
[2020-06-28] MEDS: amLODIPine 5 MG Tablet PO (06:00)
[2020-06-28] MEDS: levETIRAcetam 1,000 MG Tablet 1000 MG PO ×2 (06:00→17:59)
[2020-06-28] MEDS: Famotidine 20 MG Tablet PO ×2 (06:03→18:00)
[2020-06-28 06:26] LABS: Bedside Glucose 108 mg/dL (70-110)
[2020-06-28] MEDS: Juven (unflavored) Packet 1 PACKET PO ×2 (08:17→17:59)
--- NOTE | 2020-06-28 08:43 | NURSING ---
PT ATE 75% FOR BREAKFAST. NO JEVITY GIVEN PER ORDER. RN AWARE.
[2020-06-28 10:00] VITALS: PULSE 85; RESP 18
[2020-06-28] MEDS: Lactulose 20 GM/30 ML UDC 200 GM RECTAL (10:20)
--- NOTE | 2020-06-28 10:55 | CASEMGMT ---
Addendum entered by Teri Gardner 06/28/20 11:56: [facility] does not have any availability. Addendum entered by Teri Gardner 06/28/20 11:31: Son stated he filed for temporary guardianship for pt to assist in handling affairs Original Note: Social Work [facility] does not availability. Left several messages with [facility] for update. Insurance issued LCD 06/27, DC 06/28. Spoke with son and he requested appeal. Physician agreed to peer to peer - scheduled time is 2:30 pm. Notified son. Son requesting SW to refer to any [facility] SNF in network with Kristi as alternative plan. SW contacting several SNFs. Spoke with [facility] and they do not have pt in their system yet. A message was sent out to contact SW with pending number once received. Will continue to follow. CEASAR Michaud
--- NOTE | 2020-06-28 11:38 | NURSING ---
ENEMA GIVEN PER ORDER.
--- NOTE | 2020-06-28 11:49 | NURSING ---
ENEMA POSITIVE, XTRA LG X2.
--- NOTE | 2020-06-28 12:26 | CASEMGMT ---
Social Work Contacted [place] provider services to inquire about LTACH and SNF benefit periods. The worker explained those titles (SNF and LTACH) are not written in the benefit packet. It explains the patient receives benefits for inpatient hospitalization and for SNF stay. Therefore, the pt's LTACH, SNF stay are combined under the 60 day SNF benefit. CEASAR MichaudW
[2020-06-28 13:51] VITALS: BP 130/88; PULSE 77; RESP 17; TEMP 36.7; O2SAT 94
--- NOTE | 2020-06-28 14:08 | NURSING ---
PT ATE 50% WITH THIS NURSE AND SPEECH THERAPY. NO JEVITY GIVEN AT THIS TIME.
--- NOTE | 2020-06-28 14:34 | CASEMGMT ---
Social Work Dr. Clark completed peer to peer - pt approved additional 7 days. NRD 07/04. Notified son - son pleased. Explained that LTACH stay is combined with SNF stay and son expressed contacting the insurance company to get that as separate stays. Reviewed pt's progress in therapies and hopeful pt can continue to approve. Son's goal is for pt to DC to an Inpatient Rehab facility as he stated insurance has unlimited days for 2 years. Explained RU does operate the same in terms of insurance updates. Explained SW to continue to search for SNF in case pt does get cut prior to pt being approved by RU. Son understandable. Will continue to follow. Teri Gardner, CAMERA REPAIRER COSTUME SHOP MANAGER
[2020-06-28 17:59] VITALS: BP 130/88; PULSE 77
--- NOTE | 2020-06-28 18:14 | NURSING ---
PT ATE 75%. NO JEVITY AT THIS TIME.PLACEMENT VERIFIED. FLUSHED 300CC.
[2020-06-28] MEDS: Latanoprost 0.005% 1 Bottle 1 DRP EACH EYE (22:01)
[2020-06-28] MEDS: Mirtazapine 15 MG Tablet 7.5 MG PO (22:02)
[2020-06-29 05:00] VITALS: BP 121/78; PULSE 78; RESP 18; TEMP 36.9; O2SAT 96
[2020-06-29 05:54] LABS: Absolute Lymphocyte Count 2.56 X10^3/uL (0.83-4.51); Absolute Neutrophil Count 3.3 X10^3/uL (2.0-7.7); Basophil# 0.05 X10^3/uL; Basophil% 0.7 % (0-1); Eosinophils% 2.9 % (0-5); Hematocrit 42.9 % (40-54); Hemoglobin 13.5 g/dL (13.0-16.5); Lymphocyte # 2.56 X10^3/ul (4.0); Lymphocyte % 37.7 % (19-41); Mean Corp Hgb Conc 31.5 g/dL (32-36); Mean Corpuscular Hgb 27.3 pg (27.0-32.0); Mean Corpuscular Volume 86.8 fL (80-94); Mean Platelet Vol. 9.7 fl (6.2-12.0); Monocyte# 0.62 X10^3/uL; Monocyte% 9.1 % (0-10); NRBC Flagged by Analyzer 0 % (0-5); Neutrophil # 3.34 X10^3/uL (2.7-7.7); Neutrophil % 49.3 % (47-70); Platelet Count 276 K/mm3 (150-450); RBC Distribution Width CV 13.4 % (11.6-14.6); RBC Distribution Width SD 41.9 fl (35.1-43.9); Red Blood Count 4.94 M/mm3 (4.6-6.2); White Blood Count 6.8 K/mm3 (4.4-11.0)
[2020-06-29 06:02] VITALS: BP 121/78; PULSE 78
[2020-06-29] MEDS: Metoprolol Tartrate 50 MG Tablet PO ×2 (06:02→18:30)
[2020-06-29] MEDS: Clopidogrel Bisulfate 75 MG Tablet PO (06:02)
[2020-06-29] MEDS: Valproic Acid 250 MG/5 ML UDC PO ×2 (06:02→18:30)
[2020-06-29] MEDS: levETIRAcetam 1,000 MG Tablet 1000 MG PO ×2 (06:02→18:30)
[2020-06-29] MEDS: FLUoxetine 10 MG Capsule PO (06:02)
[2020-06-29] MEDS: Haloperidol 1 MG Tablet 2 MG PO ×3 (06:02→20:53)
[2020-06-29] MEDS: Nystatin Powder 15gm Bottle 1 APPLIC TOPICAL ×2 (06:03→20:59)
[2020-06-29] MEDS: amLODIPine 5 MG Tablet PO (06:03)
[2020-06-29] MEDS: Famotidine 20 MG Tablet PO ×2 (06:03→18:32)
[2020-06-29] MEDS: Menthol/Lanolin/Calamine/Znox 113 GM Tube 1 APPLIC TOPICAL ×2 (06:04→20:51)
[2020-06-29 06:20] LABS: Bedside Glucose 100 mg/dL (70-110)
[2020-06-29 06:31] LABS: Anion Gap 6 (5-15); BUN 17 mg/dL (7-18); BUN/Creat Ratio 22.7 RATIO (10-20); Calcium,Total 8.8 mg/dL (8.5-10.1); Chloride 106 mmol/L (98-107); Creatinine, Serum 0.75 mg/dL (0.70-1.30); EST Glomerular Filtration Rate 114 mL/min (>60); Est Glom Filt Rate - Afr Amer 137 mL/min (>60); Estimated Creatinine Clearance 117.84 ml/min; Glucose 86 mg/dL (74-106); Potassium 3.6 mmol/L (3.5-5.1); Sodium Level 139 mmol/L (136-145)
[2020-06-29] MEDS: Juven (unflavored) Packet 1 PACKET PO (08:09)
--- NOTE | 2020-06-29 08:29 | NURSING ---
jevity not given,pt ate 50%.
--- NOTE | 2020-06-29 11:08 | CASEMGMT ---
Social Work [facility] and [facility] SNF both are unable to accept pt under JENN Pending or no availability for an appropriate unit for pt. Will begin referring to SNFs in [facility]. CEASAR MichaudW
--- NOTE | 2020-06-29 12:39 | NURSING ---
pt ate 75% for lunch. Jevity not given. pt tolerated well.
--- NOTE | 2020-06-29 13:20 | CASEMGMT ---
[facility] Pending #[id number]. CEASAR Michaud [employer]
[2020-06-29 14:19] VITALS: BP 114/72; PULSE 82; RESP 16; TEMP 36.4; O2SAT 97
--- NOTE | 2020-06-29 15:11 | NURSING ---
wound photo: back
--- NOTE | 2020-06-29 16:41 | NURSING ---
UP DATED SON ON PT. SON VERY THANKFUL FOR CALL.
[2020-06-29 18:30] VITALS: BP 114/72; PULSE 82
[2020-06-29 19:45] VITALS: PULSE 80; RESP 16; O2SAT 96
[2020-06-29] MEDS: Latanoprost 0.005% 1 Bottle 1 DRP EACH EYE (20:52)
[2020-06-29] MEDS: Mirtazapine 15 MG Tablet 7.5 MG PO (20:52)
[2020-06-30 05:00] VITALS: BP 144/94; PULSE 82; RESP 16; TEMP 36.9; O2SAT 98
[2020-06-30] MEDS: Menthol/Lanolin/Calamine/Znox 113 GM Tube 1 APPLIC TOPICAL ×2 (05:13→20:17)
[2020-06-30] MEDS: Nystatin Powder 15gm Bottle 1 APPLIC TOPICAL ×2 (05:14→20:18)
[2020-06-30] MEDS: Valproic Acid 250 MG/5 ML UDC PO ×2 (05:14→17:49)
[2020-06-30] MEDS: Haloperidol 1 MG Tablet 2 MG PO ×3 (05:14→20:18)
[2020-06-30 05:15] VITALS: BP 144/94; PULSE 82
[2020-06-30] MEDS: Clopidogrel Bisulfate 75 MG Tablet PO (05:15)
[2020-06-30] MEDS: levETIRAcetam 1,000 MG Tablet 1000 MG PO ×2 (05:15→17:48)
[2020-06-30] MEDS: amLODIPine 5 MG Tablet PO (05:15)
[2020-06-30] MEDS: Famotidine 20 MG Tablet PO ×2 (05:15→17:49)
[2020-06-30] MEDS: Metoprolol Tartrate 50 MG Tablet PO ×2 (05:15→17:48)
[2020-06-30] MEDS: FLUoxetine 10 MG Capsule PO (05:16)
[2020-06-30 06:21] LABS: Bedside Glucose 129 mg/dL (70-110)
[2020-06-30 10:00] VITALS: PULSE 76; RESP 16; O2SAT 92
[2020-06-30 14:01] VITALS: BP 130/80; PULSE 94; RESP 16; TEMP 36.4; O2SAT 94
[2020-06-30 17:48] VITALS: PULSE 94
[2020-06-30] MEDS: Latanoprost 0.005% 1 Bottle 1 DRP EACH EYE (20:19)
[2020-06-30] MEDS: Mirtazapine 15 MG Tablet 7.5 MG PO (20:19)
[2020-07-01 05:25] VITALS: BP 129/80; PULSE 83; RESP 17; TEMP 37.1; O2SAT 96
[2020-07-01] MEDS: Valproic Acid 250 MG/5 ML UDC PO ×2 (05:27→18:12)
[2020-07-01] MEDS: Acetaminophen 325 MG Tablet 650 MG PO ×2 (05:27→11:48)
[2020-07-01] MEDS: Haloperidol 1 MG Tablet 2 MG PO ×3 (05:27→20:56)
[2020-07-01 05:28] VITALS: BP 129/80; PULSE 83
[2020-07-01] MEDS: amLODIPine 5 MG Tablet PO (05:28)
[2020-07-01] MEDS: Clopidogrel Bisulfate 75 MG Tablet PO (05:28)
[2020-07-01] MEDS: Metoprolol Tartrate 50 MG Tablet PO ×2 (05:28→18:13)
[2020-07-01] MEDS: Famotidine 20 MG Tablet PO ×2 (05:28→18:12)
[2020-07-01] MEDS: levETIRAcetam 1,000 MG Tablet 1000 MG PO ×2 (05:28→18:12)
[2020-07-01] MEDS: Nystatin Powder 15gm Bottle 1 APPLIC TOPICAL ×2 (05:28→20:57)
[2020-07-01] MEDS: Menthol/Lanolin/Calamine/Znox 113 GM Tube 1 APPLIC TOPICAL ×2 (05:29→20:57)
[2020-07-01] MEDS: FLUoxetine 10 MG Capsule PO (05:29)
[2020-07-01 06:26] LABS: Bedside Glucose 122 mg/dL (70-110)
--- NOTE | 2020-07-01 09:01 | NURSING ---
pt ate 75%. no Jevity given at this time.
--- NOTE | 2020-07-01 12:22 | CASEMGMT ---
Social Work Spoke with [facility] and [facility] and they are reviewing patient's case. Followed up with [facility] to see if they have any availability - they denied pt. Updated the son. Son is still hoping for continued therapy in TCU until patient qualifies for inpatient rehab. Will continue to follow. Teri Gardner, CEASAR TYSONW
[2020-07-01 14:29] VITALS: BP 119/71; PULSE 81; RESP 17; TEMP 36.9; O2SAT 96
--- NOTE | 2020-07-01 14:35 | NURSING ---
PT ATE 50%. NO JEVITY GIVEN AT THIS TIME.
--- NOTE | 2020-07-01 15:02 | CASEMGMT ---
Social Work Followed up with [facility] and if pt is unable to private pay, they cannot accept the pt. Followed up with [facility] and they can accept the pt. Provided updated clinicals to Trudy VILLATORO to review if pt can qualify to DC there. Will continue to follow. Teri Gardner, FOREIGN CLERK IN HOME TUTOR
--- NOTE | 2020-07-01 16:57 | NURSING ---
FOUND PT TWICE TODAY HAD PULLED BINDER OFF AND WAS PULLING ON HIS PEG TUBE. TRIED TO ORIENT PT TO WHY TO NOT PULL ON PEG TUBE. RN AWARE.
[2020-07-01 18:13] VITALS: BP 119/71; PULSE 81
--- NOTE | 2020-07-01 18:37 | NURSING ---
pt ate 75%,no Jevity given. placement vairifed. flushed peg 300cc with sterile water. pt tolerated well.
[2020-07-01] MEDS: Mirtazapine 15 MG Tablet 7.5 MG PO (20:56)
[2020-07-01] MEDS: Latanoprost 0.005% 1 Bottle 1 DRP EACH EYE (20:58)
[2020-07-02 05:00] VITALS: BP 128/88; PULSE 91; RESP 16; TEMP 37.1; O2SAT 97
[2020-07-02 06:12] VITALS: BP 128/88; PULSE 91
[2020-07-02] MEDS: Metoprolol Tartrate 50 MG Tablet PO ×2 (06:12→18:33)
[2020-07-02] MEDS: levETIRAcetam 1,000 MG Tablet 1000 MG PO ×2 (06:12→18:32)
[2020-07-02] MEDS: Clopidogrel Bisulfate 75 MG Tablet PO (06:12)
[2020-07-02] MEDS: FLUoxetine 10 MG Capsule PO (06:12)
[2020-07-02] MEDS: amLODIPine 5 MG Tablet PO (06:13)
[2020-07-02] MEDS: Valproic Acid 250 MG/5 ML UDC PO ×2 (06:13→18:32)
[2020-07-02] MEDS: Famotidine 20 MG Tablet PO ×2 (06:13→18:32)
[2020-07-02] MEDS: Menthol/Lanolin/Calamine/Znox 113 GM Tube 1 APPLIC TOPICAL ×2 (06:14→19:58)
[2020-07-02] MEDS: Haloperidol 1 MG Tablet 2 MG PO ×3 (06:15→19:56)
[2020-07-02] MEDS: Nystatin Powder 15gm Bottle 1 APPLIC TOPICAL ×2 (06:16→19:58)
[2020-07-02 06:25] LABS: Bedside Glucose 96 mg/dL (70-110)
[2020-07-02] MEDS: Acetaminophen 325 MG Tablet 650 MG PO (08:25)
[2020-07-02 10:00] VITALS: PULSE 80; RESP 16; O2SAT 96
[2020-07-02 14:07] VITALS: BP 135/78; PULSE 84; RESP 16; TEMP 36.6; O2SAT 96
[2020-07-02 18:33] VITALS: BP 135/78; PULSE 84
[2020-07-02] MEDS: Latanoprost 0.005% 1 Bottle 1 DRP EACH EYE (19:57)
[2020-07-02] MEDS: Mirtazapine 15 MG Tablet 7.5 MG PO (19:58)
[2020-07-03 05:00] VITALS: BP 141/92; PULSE 78; RESP 16; TEMP 36.9; O2SAT 95
[2020-07-03] MEDS: Menthol/Lanolin/Calamine/Znox 113 GM Tube 1 APPLIC TOPICAL ×2 (06:10→19:59)
[2020-07-03 06:12] VITALS: BP 141/92; PULSE 78
[2020-07-03] MEDS: Famotidine 20 MG Tablet PO ×2 (06:12→18:43)
[2020-07-03] MEDS: FLUoxetine 10 MG Capsule PO (06:12)
[2020-07-03] MEDS: Valproic Acid 250 MG/5 ML UDC PO ×2 (06:12→18:42)
[2020-07-03] MEDS: Haloperidol 1 MG Tablet 2 MG PO ×3 (06:12→19:57)
[2020-07-03] MEDS: amLODIPine 5 MG Tablet PO (06:12)
[2020-07-03] MEDS: Clopidogrel Bisulfate 75 MG Tablet PO (06:12)
[2020-07-03] MEDS: Metoprolol Tartrate 50 MG Tablet PO ×2 (06:12→18:44)
[2020-07-03] MEDS: levETIRAcetam 1,000 MG Tablet 1000 MG PO ×2 (06:12→18:42)
[2020-07-03] MEDS: Nystatin Powder 15gm Bottle 1 APPLIC TOPICAL ×2 (06:13→19:58)
[2020-07-03 06:31] LABS: Bedside Glucose 104 mg/dL (70-110)
--- NOTE | 2020-07-03 13:47 | NURSING ---
Son called to update him, no answer, message left.
[2020-07-03 14:00] VITALS: BP 127/90; PULSE 106; RESP 20; TEMP 36.9; O2SAT 96
[2020-07-03 18:44] VITALS: BP 127/90; PULSE 106
[2020-07-03] MEDS: Mirtazapine 15 MG Tablet 7.5 MG PO (19:57)
[2020-07-03] MEDS: Latanoprost 0.005% 1 Bottle 1 DRP EACH EYE (19:59)
[2020-07-04] MEDS: amLODIPine 5 MG Tablet PO (04:41)
[2020-07-04] MEDS: Valproic Acid 250 MG/5 ML UDC PO ×2 (04:41→18:15)
[2020-07-04] MEDS: Famotidine 20 MG Tablet PO ×2 (04:41→18:15)
[2020-07-04] MEDS: Clopidogrel Bisulfate 75 MG Tablet PO (04:41)
[2020-07-04] MEDS: FLUoxetine 10 MG Capsule PO (04:42)
[2020-07-04] MEDS: Nystatin Powder 15gm Bottle 1 APPLIC TOPICAL ×2 (04:42→21:41)
[2020-07-04] MEDS: Haloperidol 1 MG Tablet 2 MG PO ×3 (04:42→21:46)
[2020-07-04] MEDS: Menthol/Lanolin/Calamine/Znox 113 GM Tube 1 APPLIC TOPICAL ×2 (04:43→21:41)
[2020-07-04] MEDS: levETIRAcetam 1,000 MG Tablet 1000 MG PO ×2 (04:43→18:15)
[2020-07-04 04:47] VITALS: BP 133/84; PULSE 84
[2020-07-04] MEDS: Metoprolol Tartrate 50 MG Tablet PO ×2 (04:47→18:16)
[2020-07-04 04:58] VITALS: BP 133/84; PULSE 84; RESP 16; TEMP 36.6; O2SAT 97
[2020-07-04 06:21] LABS: Bedside Glucose 115 mg/dL (70-110)
--- NOTE | 2020-07-04 08:40 | CASEMGMT ---
Social Work [facility] still denying pt due to low functioning physically however they would still like to continue to follow pt. Insurance update this date. Will continue to follow. Teri Gardner, SAW SUPERINTENDENT HARD HAT DIVER
--- NOTE | 2020-07-04 13:11 | CASEMGMT ---
Social Work [facility] contacted to inform that upon further review of pt's insurance and payor information, they cannot accept pt. SW questioned the change in acceptance since all information was given to [facility] upon the referral - CC stated their BOM reviewed the case and the pt would need to pay privately and could not accept with [facility]. Insurance approved pt 6 more days with NRD 07/10 -which would be day 41. Notified son of above. SW to resend clinicals to all inpatient rehab units prior to insurance review to see if pt improved functioning to be accepted. Teri Gardner, ACCOUNTING OFFICE MANAGER POCKET CLOSER
[2020-07-04 14:08] VITALS: BP 117/73; PULSE 82; RESP 17; TEMP 36.8; O2SAT 95
[2020-07-04 18:16] VITALS: PULSE 82
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
[2020-07-04] MEDS: Mirtazapine 15 MG Tablet 7.5 MG PO (21:45)
[2020-07-04] MEDS: Latanoprost 0.005% 1 Bottle 1 DRP EACH EYE (21:47)
[2020-07-05 05:00] VITALS: BP 139/87; PULSE 80; RESP 18; TEMP 36.6; O2SAT 95
[2020-07-05] MEDS: Menthol/Lanolin/Calamine/Znox 113 GM Tube 1 APPLIC TOPICAL ×2 (05:49→21:38)
[2020-07-05] MEDS: Nystatin Powder 15gm Bottle 1 APPLIC TOPICAL ×2 (05:49→21:38)
[2020-07-05] MEDS: Haloperidol 1 MG Tablet 2 MG PO ×3 (05:50→21:38)
[2020-07-05] MEDS: levETIRAcetam 1,000 MG Tablet 1000 MG PO ×2 (05:51→18:01)
[2020-07-05 05:52] VITALS: BP 139/87; PULSE 80
[2020-07-05] MEDS: Metoprolol Tartrate 50 MG Tablet PO ×2 (05:52→18:01)
[2020-07-05] MEDS: FLUoxetine 10 MG Capsule PO (05:54)
[2020-07-05] MEDS: Valproic Acid 250 MG/5 ML UDC PO ×2 (05:55→18:02)
[2020-07-05] MEDS: Famotidine 20 MG Tablet PO ×2 (05:55→18:01)
[2020-07-05] MEDS: Clopidogrel Bisulfate 75 MG Tablet PO (05:55)
[2020-07-05] MEDS: amLODIPine 5 MG Tablet PO (05:55)
[2020-07-05 06:26] LABS: Bedside Glucose 162 mg/dL (70-110)
[2020-07-05] MEDS: Acetaminophen 325 MG Tablet 650 MG PO ×2 (09:06→21:36)
[2020-07-05 09:15] VITALS: PULSE 84; RESP 18; O2SAT 97
[2020-07-05 13:46] VITALS: BP 132/70; PULSE 74; RESP 14; TEMP 36.9; O2SAT 94
--- NOTE | 2020-07-05 17:05 | NURSING ---
PT TALKED TO SON ON PHONE .
[2020-07-05 18:01] VITALS: BP 132/70; PULSE 74
--- NOTE | 2020-07-05 19:43 | NURSING ---
Addendum entered by Annalisa Gonzalez 07/06/20 00:32: Son called back into unit 07/05 2100 and given an update. Thanked this nurse and then requested to talk to his dad. Original Note: TRAILER TECHNICIAN went to walk past pts room. Pt noted to be sitting on the floor leaning on PA so it was not sounding. Pt assisted back into bed x3 assist. Pt incontinent of large amount of urine. When asking pt where he was going he stated Im getting out of here. Small red area noted to Left flank. Pt denied pain or hitting his head. Pt A&Ox2. Dr. Clark updated. NNO. Process Area Supervisor notified. Attempted to update son but left a voicemail.
[2020-07-05] MEDS: Mirtazapine 15 MG Tablet 7.5 MG PO (21:39)
[2020-07-05] MEDS: Latanoprost 0.005% 1 Bottle 1 DRP EACH EYE (21:40)
[2020-07-06 05:00] VITALS: BP 132/81; PULSE 72; RESP 18; TEMP 36.6; O2SAT 94
[2020-07-06] MEDS: Haloperidol 1 MG Tablet 2 MG PO ×3 (05:14→21:29)
[2020-07-06 05:15] VITALS: BP 132/81; PULSE 72
[2020-07-06] MEDS: FLUoxetine 10 MG Capsule PO (05:15)
[2020-07-06] MEDS: levETIRAcetam 1,000 MG Tablet 1000 MG PO ×2 (05:15→17:41)
[2020-07-06] MEDS: Clopidogrel Bisulfate 75 MG Tablet PO (05:15)
[2020-07-06] MEDS: Menthol/Lanolin/Calamine/Znox 113 GM Tube 1 APPLIC TOPICAL ×2 (05:15→21:31)
[2020-07-06] MEDS: Metoprolol Tartrate 50 MG Tablet PO ×2 (05:15→17:40)
[2020-07-06] MEDS: Valproic Acid 250 MG/5 ML UDC PO ×2 (05:15→17:41)
[2020-07-06] MEDS: amLODIPine 5 MG Tablet PO (05:15)
[2020-07-06] MEDS: Famotidine 20 MG Tablet PO ×2 (05:15→17:40)
[2020-07-06] MEDS: Nystatin Powder 15gm Bottle 1 APPLIC TOPICAL ×2 (05:16→21:31)
[2020-07-06 06:35] LABS: Bedside Glucose 100 mg/dL (70-110)
--- NOTE | 2020-07-06 11:30 | ST.MBS ---
Modified Barium Swallow - Penetration-Aspiration Scale Penetration-Aspiration Scale: OBJECTIVE ASSESSMENT OF SWALLOW FUNCTION (QUANTITATIVE ? PER TRIAL): PENETRATION / ASPIRATION SCALE (QUEVEDO): 1 = does not enter airway 2 = enters airway/above vocal folds/ejected 3 = enters airway/above vocal folds/not ejected 4 = enters airway/contacts vocal folds/ejected 5 = enters airway/contacts vocal folds/not ejected 6 = enters airway/below vocal folds/ejected 7 = enters airway/below vocal folds/not ejected despite effort 8 = enters airway/below vocal folds/no effort VIDEOFLOROSCOPIC SCALE SCORE (QUEVEDO): Grade I = aspiration of material that has penetrated into the laryngeal vestibule, intact cough reflex Grade II = aspiration < 10 % of the bolus, intact cough reflex Grade III = aspiration of < 10 % of the bolus, reduced cough reflex or aspiration of > 10 % of the bolus, intact cough reflex Grade IV = aspiration of > 10 % of the bolus, reduced cough reflex - Penetration-Aspiration Scale Score Thin Liquid via teaspoon Result: 1= does not enter airway
[2020-07-06] MEDS: Acetaminophen 325 MG Tablet 650 MG PO (11:47)
[2020-07-06 13:35] VITALS: BP 149/82; PULSE 90; RESP 16; TEMP 36.8; O2SAT 98
--- NOTE | 2020-07-06 15:23 | NURSING ---
wound photo: back
[2020-07-06 17:40] VITALS: BP 149/82; PULSE 90
[2020-07-06 21:05] VITALS: PULSE 70; RESP 18; O2SAT 95
[2020-07-06] MEDS: Mirtazapine 15 MG Tablet 7.5 MG PO (21:29)
[2020-07-06] MEDS: Latanoprost 0.005% 1 Bottle 1 DRP EACH EYE (21:31)
[2020-07-07 05:00] VITALS: BP 120/75; PULSE 82; RESP 16; TEMP 36.8; O2SAT 95
[2020-07-07 05:12] VITALS: BP 120/75; PULSE 82
[2020-07-07] MEDS: Famotidine 20 MG Tablet PO ×2 (05:12→17:27)
[2020-07-07] MEDS: Metoprolol Tartrate 50 MG Tablet PO ×2 (05:12→17:27)
[2020-07-07] MEDS: Haloperidol 1 MG Tablet 2 MG PO ×3 (05:12→20:17)
[2020-07-07] MEDS: amLODIPine 5 MG Tablet PO (05:12)
[2020-07-07] MEDS: Clopidogrel Bisulfate 75 MG Tablet PO (05:12)
[2020-07-07] MEDS: FLUoxetine 10 MG Capsule PO (05:12)
[2020-07-07] MEDS: levETIRAcetam 1,000 MG Tablet 1000 MG PO ×2 (05:12→17:27)
[2020-07-07] MEDS: Valproic Acid 250 MG/5 ML UDC PO ×2 (05:12→17:27)
[2020-07-07] MEDS: Menthol/Lanolin/Calamine/Znox 113 GM Tube 1 APPLIC TOPICAL ×2 (05:14→20:17)
[2020-07-07] MEDS: Nystatin Powder 15gm Bottle 1 APPLIC TOPICAL ×2 (05:15→20:18)
[2020-07-07] MEDS: Furosemide 40 MG Tablet PO (09:18)
[2020-07-07 09:44] VITALS: PULSE 77; RESP 18; O2SAT 95
[2020-07-07 09:49] LABS: Absolute Lymphocyte Count 2.33 X10^3/uL (0.83-4.51); Absolute Neutrophil Count 4.7 X10^3/uL (2.0-7.7); Basophil# 0.05 X10^3/uL; Basophil% 0.6 % (0-1); Eosinophil# 0.12 X10^3/uL; Eosinophils% 1.5 % (0-5); Hematocrit 44.3 % (40-54); Hemoglobin 14.3 g/dL (13.0-16.5); Lymphocyte # 2.33 X10^3/ul (4.0); Lymphocyte % 29.6 % (19-41); Mean Corp Hgb Conc 32.3 g/dL (32-36); Mean Corpuscular Hgb 27.7 pg (27.0-32.0); Mean Corpuscular Volume 85.9 fL (80-94); Mean Platelet Vol. 9.4 fl (6.2-12.0); Monocyte# 0.65 X10^3/uL; Monocyte% 8.3 % (0-10); NRBC Flagged by Analyzer 0 % (0-5); Neutrophil % 59.7 % (47-70); Platelet Count 342 K/mm3 (150-450); RBC Distribution Width CV 13.2 % (11.6-14.6); RBC Distribution Width SD 41.5 fl (35.1-43.9); Red Blood Count 5.16 M/mm3 (4.6-6.2); White Blood Count 7.9 K/mm3 (4.4-11.0)
[2020-07-07 10:03] LABS: Anion Gap 6 (5-15); BUN 10 mg/dL (7-18); Calcium,Total 8.9 mg/dL (8.5-10.1); Chloride 106 mmol/L (98-107); Creatinine, Serum 0.77 mg/dL (0.70-1.30); EST Glomerular Filtration Rate 110 mL/min (>60); Est Glom Filt Rate - Afr Amer 134 mL/min (>60); Estimated Creatinine Clearance 114.78 ml/min; Glucose 119 mg/dL (74-106); Sodium Level 139 mmol/L (136-145)
[2020-07-07 10:45] LABS: Bedside Glucose 93 mg/dL (70-110)
[2020-07-07] MEDS: Acetaminophen 325 MG Tablet 650 MG PO (12:27)
[2020-07-07 13:40] VITALS: BP 147/89; PULSE 105; RESP 16; TEMP 36.5; O2SAT 98
--- NOTE | 2020-07-07 16:51 | CASEMGMT ---
Social Work Spoke with son about updated DC planning. Explained SW has received denials from SNFs due to concerns with Medicaid - 401k and other assets, and when admissions speaks to the son he states he does not want the pt to go to a SNF. Son explained he does state these things, but he doesn't mean he doesn't want the pt to go there at all, just that the goal is for the pt to directly transfer from TCU to IR without another SNF stay. Son explained he is having difficulty getting [facility] to contact him to move forward on temporary guardianship. Without guardianship, son does not have access to pt's 401k and other assets to liquidate the money to pay for SNFs. Son is currently paying for pt's medical bills with his own money so they do not go unpaid, but he is concerned if the pt does get on Medicaid, the son will not get reimbursed the money for the pt's bills. Son is willing to use the pt's 401k, which he believes is around $40k, to pay up front for a SNF, but he does not have access to it yet. SW validated pt's feelings and concerns. Explained pt is still not eligible for IR units yet and unsure if pt would progress enough to be eligible prior to insurance issuing DC. Son understands the reality of the situation. SW provided supportive listening. Son appreciative of SW assistance. JOSE will continue to follow. Teri Gardner, CEASAR TYSONW
[2020-07-07 17:27] VITALS: PULSE 105
[2020-07-07] MEDS: Latanoprost 0.005% 1 Bottle 1 DRP EACH EYE (20:16)
[2020-07-07] MEDS: Mirtazapine 15 MG Tablet 7.5 MG PO (20:17)
[2020-07-08 04:49] VITALS: BP 136/85; PULSE 85; RESP 16; TEMP 36.9; O2SAT 97
[2020-07-08] MEDS: FLUoxetine 10 MG Capsule PO (04:50)
[2020-07-08] MEDS: Valproic Acid 250 MG/5 ML UDC PO ×2 (04:50→17:52)
[2020-07-08 04:51] VITALS: BP 136/85; PULSE 85
[2020-07-08] MEDS: Famotidine 20 MG Tablet PO ×2 (04:51→17:52)
[2020-07-08] MEDS: levETIRAcetam 1,000 MG Tablet 1000 MG PO ×2 (04:51→17:52)
[2020-07-08] MEDS: Metoprolol Tartrate 50 MG Tablet PO ×2 (04:51→17:52)
[2020-07-08] MEDS: Haloperidol 1 MG Tablet 2 MG PO ×3 (04:51→20:29)
[2020-07-08] MEDS: Clopidogrel Bisulfate 75 MG Tablet PO (04:51)
[2020-07-08] MEDS: Menthol/Lanolin/Calamine/Znox 113 GM Tube 1 APPLIC TOPICAL ×2 (04:52→20:31)
[2020-07-08] MEDS: Nystatin Powder 15gm Bottle 1 APPLIC TOPICAL ×2 (04:52→20:31)
[2020-07-08] MEDS: amLODIPine 5 MG Tablet PO (04:54)
[2020-07-08 06:26] LABS: Bedside Glucose 112 mg/dL (70-110)
--- NOTE | 2020-07-08 10:45 | CASEMGMT ---
Social Work Contacted [facility] [address] about pt's temporary guardianship status. The accounting clerk informed SW the improper paperwork had been filed and the son is working with [employer] Jesus Doherty - [phone]. Contacted [employer]'s office, spoke with blood donor unit assistant whom is working on the case as well. She stated the son completed the proper paperwork the previous day with her, and she is submitting that this date. Explained the insurance situation, and pt cannot DC to a SNF without paying up front, which son cannot do until he has access to pt's 401k. Explained if insurance does approve more days with review 07/10, the pt still only has a potential 19 days left from his 60 day benefit. Provided blood donor unit assistant with SW contact information to keep updated on progress and for any assistance. Will continue to follow. CEASAR Michaud
[2020-07-08 14:00] VITALS: BP 118/80; PULSE 96; RESP 18; TEMP 36.1; O2SAT 96
[2020-07-08 17:52] VITALS: PULSE 96
[2020-07-08] MEDS: Latanoprost 0.005% 1 Bottle 1 DRP EACH EYE (20:29)
[2020-07-08] MEDS: Mirtazapine 15 MG Tablet 7.5 MG PO (20:30)
[2020-07-08 20:38] VITALS: PULSE 74; RESP 16; O2SAT 97
[2020-07-09 04:46] VITALS: BP 159/87; PULSE 83; RESP 16; TEMP 36.6
[2020-07-09 04:50] VITALS: BP 159/87; PULSE 83
[2020-07-09] MEDS: Valproic Acid 250 MG/5 ML UDC PO ×2 (04:50→17:29)
[2020-07-09] MEDS: Haloperidol 1 MG Tablet 2 MG PO ×3 (04:50→22:18)
[2020-07-09] MEDS: Famotidine 20 MG Tablet PO ×2 (04:50→17:29)
[2020-07-09] MEDS: Metoprolol Tartrate 50 MG Tablet PO ×2 (04:50→17:29)
[2020-07-09] MEDS: FLUoxetine 10 MG Capsule PO (04:51)
[2020-07-09] MEDS: Menthol/Lanolin/Calamine/Znox 113 GM Tube 1 APPLIC TOPICAL ×2 (04:51→22:16)
[2020-07-09] MEDS: amLODIPine 5 MG Tablet PO (04:51)
[2020-07-09] MEDS: Clopidogrel Bisulfate 75 MG Tablet PO (04:51)
[2020-07-09] MEDS: levETIRAcetam 1,000 MG Tablet 1000 MG PO ×2 (04:51→17:29)
[2020-07-09] MEDS: Nystatin Powder 15gm Bottle 1 APPLIC TOPICAL ×2 (04:52→22:18)
[2020-07-09 06:21] LABS: Bedside Glucose 91 mg/dL (70-110)
[2020-07-09 09:45] VITALS: PULSE 90; RESP 18; O2SAT 97
[2020-07-09 14:16] VITALS: BP 127/82; PULSE 107; RESP 18; TEMP 36.9; O2SAT 96
[2020-07-09] MEDS: Furosemide 40 MG Tablet PO (14:39)
--- NOTE | 2020-07-09 15:06 | NURSING ---
date night sitter noted increased edema to hands and around eyes. dr gunter updated, new order lasix x5 days
[2020-07-09 17:29] VITALS: BP 127/82; PULSE 107
[2020-07-09] MEDS: Mirtazapine 15 MG Tablet 7.5 MG PO (22:18)
[2020-07-09] MEDS: Latanoprost 0.005% 1 Bottle 1 DRP EACH EYE (22:19)
[2020-07-10 04:56] VITALS: BP 135/86; PULSE 98; RESP 18; TEMP 36.7; O2SAT 94
[2020-07-10] MEDS: Menthol/Lanolin/Calamine/Znox 113 GM Tube 1 APPLIC TOPICAL ×2 (05:00→21:49)
[2020-07-10] MEDS: Valproic Acid 250 MG/5 ML UDC PO ×2 (05:00→17:08)
[2020-07-10 05:01] VITALS: BP 135/86; PULSE 98
[2020-07-10] MEDS: Haloperidol 1 MG Tablet 2 MG PO ×3 (05:01→21:48)
[2020-07-10] MEDS: FLUoxetine 10 MG Capsule PO (05:01)
[2020-07-10] MEDS: levETIRAcetam 1,000 MG Tablet 1000 MG PO ×2 (05:01→17:09)
[2020-07-10] MEDS: Metoprolol Tartrate 50 MG Tablet PO ×2 (05:01→17:08)
[2020-07-10] MEDS: Famotidine 20 MG Tablet PO ×2 (05:02→17:08)
[2020-07-10] MEDS: amLODIPine 5 MG Tablet PO (05:02)
[2020-07-10] MEDS: Clopidogrel Bisulfate 75 MG Tablet PO (05:02)
[2020-07-10] MEDS: Furosemide 40 MG Tablet PO (05:02)
[2020-07-10] MEDS: Nystatin Powder 15gm Bottle 1 APPLIC TOPICAL ×2 (05:02→21:49)
[2020-07-10 06:46] LABS: Bedside Glucose 146 mg/dL (70-110)
[2020-07-10 14:40] VITALS: BP 132/90; PULSE 100; RESP 16; TEMP 36.8; O2SAT 97
--- NOTE | 2020-07-10 15:11 | NURSING ---
UPDATED SON AND GAVE PHONE TO PT TO TALK TO SON.
[2020-07-10 17:08] VITALS: BP 132/90; PULSE 100
[2020-07-10] MEDS: Senna/Docusate Sodium 1 Tablet PO (17:09)
[2020-07-10] MEDS: Mirtazapine 15 MG Tablet 7.5 MG PO (21:48)
[2020-07-10] MEDS: Latanoprost 0.005% 1 Bottle 1 DRP EACH EYE (22:03)
[2020-07-11] MEDS: Menthol/Lanolin/Calamine/Znox 113 GM Tube 1 APPLIC TOPICAL ×2 (04:57→22:16)
[2020-07-11] MEDS: Nystatin Powder 15gm Bottle 1 APPLIC TOPICAL ×2 (04:58→22:18)
[2020-07-11] MEDS: FLUoxetine 10 MG Capsule PO (04:59)
[2020-07-11] MEDS: Clopidogrel Bisulfate 75 MG Tablet PO (04:59)
[2020-07-11 05:00] VITALS: BP 133/85; PULSE 86; RESP 18; TEMP 36.6; O2SAT 95
[2020-07-11] MEDS: Valproic Acid 250 MG/5 ML UDC PO ×2 (05:01→17:36)
[2020-07-11 05:02] VITALS: BP 133/85; PULSE 86
[2020-07-11] MEDS: amLODIPine 5 MG Tablet PO (05:02)
[2020-07-11] MEDS: Famotidine 20 MG Tablet PO ×2 (05:02→17:37)
[2020-07-11] MEDS: Metoprolol Tartrate 50 MG Tablet PO ×2 (05:02→17:37)
[2020-07-11] MEDS: Haloperidol 1 MG Tablet 2 MG PO ×3 (05:02→22:18)
[2020-07-11] MEDS: Furosemide 40 MG Tablet PO (05:02)
[2020-07-11] MEDS: levETIRAcetam 1,000 MG Tablet 1000 MG PO ×2 (05:04→17:36)
[2020-07-11 05:58] LABS: Anion Gap 5 (5-15); BUN 12 mg/dL (7-18); BUN/Creat Ratio 16.9 RATIO (10-20); Calcium,Total 8.7 mg/dL (8.5-10.1); Chloride 103 mmol/L (98-107); Creatinine, Serum 0.71 mg/dL (0.70-1.30); EST Glomerular Filtration Rate 121 mL/min (>60); Est Glom Filt Rate - Afr Amer 146 mL/min (>60); Estimated Creatinine Clearance 124.48 ml/min; Glucose 93 mg/dL (74-106); Potassium 3.8 mmol/L (3.5-5.1); Sodium Level 137 mmol/L (136-145)
[2020-07-11 06:16] LABS: Bedside Glucose 105 mg/dL (70-110)
[2020-07-11 10:00] VITALS: PULSE 94; RESP 16; O2SAT 94
--- NOTE | 2020-07-11 13:49 | NURSING ---
wound photo: back
--- NOTE | 2020-07-11 13:57 | CASEMGMT ---
Social Work Spoke with the assistant county attorney's office and they are going to assist son in filing for emergency guardianship. Dr. Clark completed paperwork and SW to provide to son at outdoor visit this date. Will continue to follow. CEASAR MichaudW
[2020-07-11 14:22] VITALS: BP 128/79; PULSE 88; RESP 16; TEMP 36.3; O2SAT 98
--- NOTE | 2020-07-11 16:05 | CASEMGMT ---
Addendum entered by Teri Gardner 07/11/20 17:31: P2P completed - approved 7 days. NRD/LCD 07/17. Notified pt and son. Will continue to follow. Original Note: Social Work Received outcome from insurance - LCD 07/10, DC 07/11. Notified son whom is requesting P2P. Contacted Dr. Clark whom agreed. P2P scheduled for this date at 1400. Will continue to follow. CEASAR MichaudW
[2020-07-11 17:37] VITALS: PULSE 88
[2020-07-11] MEDS: Acetaminophen 325 MG Tablet 650 MG PO (19:21)
[2020-07-11] MEDS: Latanoprost 0.005% 1 Bottle 1 DRP EACH EYE (22:17)
[2020-07-11] MEDS: Mirtazapine 15 MG Tablet 7.5 MG PO (22:18)
[2020-07-12] MEDS: Menthol/Lanolin/Calamine/Znox 113 GM Tube 1 APPLIC TOPICAL ×2 (04:58→20:45)
[2020-07-12] MEDS: Haloperidol 1 MG Tablet 2 MG PO ×3 (04:59→20:39)
[2020-07-12 05:00] VITALS: BP 132/78; BP 133/78; PULSE 81; RESP 18; TEMP 36.6; O2SAT 96
[2020-07-12] MEDS: levETIRAcetam 1,000 MG Tablet 1000 MG PO ×2 (05:00→16:59)
[2020-07-12] MEDS: Clopidogrel Bisulfate 75 MG Tablet PO (05:00)
[2020-07-12] MEDS: Valproic Acid 250 MG/5 ML UDC PO ×2 (05:00→16:59)
[2020-07-12] MEDS: Furosemide 40 MG Tablet PO (05:00)
[2020-07-12] MEDS: Metoprolol Tartrate 50 MG Tablet PO ×2 (05:00→16:59)
[2020-07-12] MEDS: Nystatin Powder 15gm Bottle 1 APPLIC TOPICAL ×2 (05:00→20:44)
[2020-07-12] MEDS: FLUoxetine 10 MG Capsule PO (05:00)
[2020-07-12] MEDS: Famotidine 20 MG Tablet PO ×2 (05:00→16:59)
[2020-07-12] MEDS: amLODIPine 5 MG Tablet PO (05:00)
[2020-07-12 06:21] LABS: Bedside Glucose 93 mg/dL (70-110)
[2020-07-12] MEDS: Polyethylene Glycol 3350 17 GM PACKET PO (08:43)
--- NOTE | 2020-07-12 08:48 | NURSING ---
prn miralax given.
[2020-07-12] MEDS: Jevity 1.5. 1,000 ML Bottle 400 ML GT (13:23)
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
[2020-07-12 14:54] VITALS: BP 121/72; PULSE 86; RESP 16; TEMP 36.6; O2SAT 98
--- NOTE | 2020-07-12 16:34 | CASEMGMT ---
Social Work Received paperwork that son was appointed emergency temporary guardian for pt. Paperwork placed in chart. Son stated there is no issue with accessing pt's funds to pay privately initially for SNF. [facility]ained [facility] had accepted prior with need for payment, but both facilities are out of network. SW to resend referrals to 3 facilities in [facility] that are in network with pt to see if they will accept pt. NRD 07/17. Will continue to follow. Teri Gardner, CEASAR HEADWAITRESS
--- NOTE | 2020-07-12 16:42 | NURSING ---
JOSE BORJAS TOOK PT OUT FOR DISTANCE VISIT TODAY WITH SON.
[2020-07-12 16:59] VITALS: BP 121/72; PULSE 86
[2020-07-12] MEDS: Mirtazapine 15 MG Tablet 7.5 MG PO (20:39)
[2020-07-12] MEDS: Latanoprost 0.005% 1 Bottle 1 DRP EACH EYE (20:39)
[2020-07-12 20:42] VITALS: PULSE 84; RESP 16; O2SAT 94
[2020-07-13] MEDS: Valproic Acid 250 MG/5 ML UDC PO ×2 (05:31→17:14)
[2020-07-13] MEDS: Bisacodyl 10 MG Suppository RECTAL (05:31)
[2020-07-13] MEDS: Haloperidol 1 MG Tablet 2 MG PO ×3 (05:31→21:56)
[2020-07-13] MEDS: levETIRAcetam 1,000 MG Tablet 1000 MG PO ×2 (05:32→17:15)
[2020-07-13] MEDS: amLODIPine 5 MG Tablet PO (05:32)
[2020-07-13] MEDS: Furosemide 40 MG Tablet PO (05:32)
[2020-07-13] MEDS: FLUoxetine 10 MG Capsule PO (05:32)
[2020-07-13] MEDS: Famotidine 20 MG Tablet PO ×2 (05:32→17:15)
[2020-07-13] MEDS: Clopidogrel Bisulfate 75 MG Tablet PO (05:32)
[2020-07-13 05:35] VITALS: BP 117/76; PULSE 79
[2020-07-13] MEDS: Metoprolol Tartrate 50 MG Tablet PO ×2 (05:35→17:15)
[2020-07-13] MEDS: Nystatin Powder 15gm Bottle 1 APPLIC TOPICAL ×2 (05:40→21:58)
[2020-07-13] MEDS: Menthol/Lanolin/Calamine/Znox 113 GM Tube 1 APPLIC TOPICAL ×2 (05:40→21:58)
[2020-07-13 05:41] VITALS: RESP 16; TEMP 36.8; O2SAT 95
[2020-07-13 06:20] LABS: Bedside Glucose 224 mg/dL (70-110)
[2020-07-13 10:00] VITALS: PULSE 80; RESP 16; O2SAT 96
--- NOTE | 2020-07-13 10:17 | NURSING ---
was asked to assess the infected hairs to the abdomen and the right thigh. areas are reddened. small amount of bloody drainage noted. no purulent drainage noted at this time. would recommend cleaning with soap and water daily. no need for antibiotic ointment at this time. can cover if draining, otherwise would recommend leaving [facility]. will monitor as needed. the infected hair to the right anterior thigh has been present for a while. no change noted.
--- NOTE | 2020-07-13 11:21 | NURSING ---
Called Patients son to give him an update and he expressed concern about his dads rodriguez and his skin flaking. Pt said he always used a certtain type of lotion and combed his rodriguez. He is requesting that this be done daily.
[2020-07-13 14:19] VITALS: BP 120/66; PULSE 90; RESP 16; TEMP 36.7; O2SAT 96
[2020-07-13 17:15] VITALS: BP 120/66; PULSE 90
[2020-07-13] MEDS: Latanoprost 0.005% 1 Bottle 1 DRP EACH EYE (21:56)
[2020-07-13] MEDS: Mirtazapine 15 MG Tablet 7.5 MG PO (21:56)
[2020-07-14 05:00] VITALS: RESP 18; TEMP 37.1; O2SAT 95
[2020-07-14] MEDS: Valproic Acid 250 MG/5 ML UDC PO ×2 (06:19→17:55)
[2020-07-14 06:20] VITALS: BP 126/77; PULSE 88
[2020-07-14] MEDS: amLODIPine 5 MG Tablet PO (06:20)
[2020-07-14] MEDS: FLUoxetine 10 MG Capsule PO (06:20)
[2020-07-14] MEDS: Famotidine 20 MG Tablet PO ×2 (06:20→17:56)
[2020-07-14] MEDS: levETIRAcetam 1,000 MG Tablet 1000 MG PO ×2 (06:20→17:55)
[2020-07-14] MEDS: Metoprolol Tartrate 50 MG Tablet PO ×2 (06:20→17:56)
[2020-07-14] MEDS: Haloperidol 1 MG Tablet 2 MG PO ×3 (06:20→20:01)
[2020-07-14] MEDS: Clopidogrel Bisulfate 75 MG Tablet PO (06:20)
[2020-07-14] MEDS: Furosemide 40 MG Tablet PO (06:20)
[2020-07-14] MEDS: Nystatin Powder 15gm Bottle 1 APPLIC TOPICAL ×2 (06:23→19:59)
[2020-07-14] MEDS: Menthol/Lanolin/Calamine/Znox 113 GM Tube 1 APPLIC TOPICAL ×2 (06:24→20:00)
[2020-07-14 06:31] LABS: Bedside Glucose 153 mg/dL (70-110)
[2020-07-14] MEDS: Jevity 1.5. 1,000 ML Bottle 400 ML GT (13:36)
[2020-07-14 16:00] VITALS: BP 107/83; PULSE 90; RESP 20; TEMP 36.2; O2SAT 95
[2020-07-14 17:56] VITALS: PULSE 98
[2020-07-14] MEDS: Latanoprost 0.005% 1 Bottle 1 DRP EACH EYE (20:01)
[2020-07-14] MEDS: Mirtazapine 15 MG Tablet 7.5 MG PO (20:01)
[2020-07-14 20:35] VITALS: PULSE 82; RESP 16; O2SAT 97
[2020-07-15 04:25] VITALS: BP 138/87; PULSE 86; RESP 16; TEMP 36.5; O2SAT 95
[2020-07-15] MEDS: Valproic Acid 250 MG/5 ML UDC PO ×2 (04:28→17:29)
[2020-07-15] MEDS: Famotidine 20 MG Tablet PO ×2 (04:28→17:30)
[2020-07-15 04:29] VITALS: BP 138/87; PULSE 86
[2020-07-15] MEDS: Haloperidol 1 MG Tablet 2 MG PO ×2 (04:29→13:31)
[2020-07-15] MEDS: FLUoxetine 10 MG Capsule PO (04:29)
[2020-07-15] MEDS: Clopidogrel Bisulfate 75 MG Tablet PO (04:29)
[2020-07-15] MEDS: amLODIPine 5 MG Tablet PO (04:29)
[2020-07-15] MEDS: Metoprolol Tartrate 50 MG Tablet PO ×2 (04:29→17:30)
[2020-07-15] MEDS: Menthol/Lanolin/Calamine/Znox 113 GM Tube 1 APPLIC TOPICAL ×2 (04:30→21:05)
[2020-07-15] MEDS: Nystatin Powder 15gm Bottle 1 APPLIC TOPICAL ×2 (04:31→21:04)
[2020-07-15] MEDS: levETIRAcetam 1,000 MG Tablet 1000 MG PO ×2 (04:32→17:30)
[2020-07-15 06:31] LABS: Bedside Glucose 102 mg/dL (70-110)
--- NOTE | 2020-07-15 09:30 | CASEMGMT ---
Social Work Spoke with pt's son whom informed SW that only emergency guardianship has been granted. It will take another 7-10 days to receive temporary guardianship which will allow access to pt's funds. Also son is going out of town next week for matters that have been scheduled for a year and cannot be rescheduled. Explained to son JOSE has re-referred to [facility] SNFs that are in network with [place] so pt has possibility of getting therapy because [facility] and [place] both are not in network. Son understandable but still believes insurance will not issue DC until pt has exhausted his benefits, despite several explanations from JOSE that that is not guaranteed. Spoke with [facility] - unable to accept until son can provide payment. [facility] and [place] need updated clinicals and payment to accept. Will await Daniel at [place] and [facility] outcome. Teri Gardner, FANCY STITCHER TIME SIGNAL WIRER
[2020-07-15 10:15] VITALS: PULSE 85; RESP 18; O2SAT 97
[2020-07-15 13:37] VITALS: BP 148/79; PULSE 86; RESP 17; TEMP 36.4
--- NOTE | 2020-07-15 13:46 | NURSING ---
UPDATED SON ON HIS DAD. SON STATED THAT HE WILL BE OUT OF TOWN NEXT WEEK, AND PLEASE KEEP HIM UPDATED ON THINGS.
--- NOTE | 2020-07-15 16:23 | CASEMGMT ---
Social Work Collaborated with Director and physician in regards to DC plan and insurance update 07/18. Physician agreed to complete another peer to peer if pt is issued LCD. If pt does not win peer to peer, director indicated pt would need to pay TCU 14 days up front, pay 30 days at an accepting SNF or physician agreed to complete FMLA paperwork for son to care for pt at home until he receives access to payment to place pt in SNF. Spoke with son to explain above. Son stated he has no option but to be out of town next week so FMLA would not work. Pt does not have a credit card to bill to pay up front for either facility. Son very upset with options and the fact insurance may issue LCD. Continue to reexplain facilities are denying patient for either level of care or due to payment. [facility] and [facility] have accepted pt but son only wants pt in a SNF that is in network with [facility]. JOSE continues to converse with Daniel at [facility]. [facility] cannot accept pt but did send referral to sister facility[facility] whom [facility] in network with [facility]. SW to continue to follow and update son. Teri Gardner, PHYSICIST SOLID STATE HOME BASED ASSISTANT
[2020-07-15 17:30] VITALS: BP 148/79; PULSE 86
[2020-07-15] MEDS: Latanoprost 0.005% 1 Bottle 1 DRP EACH EYE (21:00)
[2020-07-15] MEDS: Mirtazapine 15 MG Tablet 7.5 MG PO (21:03)
[2020-07-15] MEDS: Haloperidol 1 MG Tablet PO (21:04)
--- NOTE | 2020-07-15 21:33 | NURSING ---
Son called and talked with father ross resting in bed with call light in reach.
[2020-07-16 04:52] VITALS: BP 154/92; PULSE 80; RESP 16; TEMP 36.6; O2SAT 95
[2020-07-16] MEDS: levETIRAcetam 1,000 MG Tablet 1000 MG PO ×2 (04:54→17:36)
[2020-07-16 04:55] VITALS: BP 154/92; PULSE 80
[2020-07-16] MEDS: Metoprolol Tartrate 50 MG Tablet PO ×2 (04:55→17:37)
[2020-07-16] MEDS: FLUoxetine 10 MG Capsule PO (04:55)
[2020-07-16] MEDS: amLODIPine 5 MG Tablet PO (04:55)
[2020-07-16] MEDS: Clopidogrel Bisulfate 75 MG Tablet PO (04:55)
[2020-07-16] MEDS: Valproic Acid 250 MG/5 ML UDC PO ×2 (04:55→17:35)
[2020-07-16] MEDS: Famotidine 20 MG Tablet PO ×2 (04:56→17:36)
[2020-07-16] MEDS: Haloperidol 1 MG Tablet PO ×3 (04:58→22:22)
[2020-07-16] MEDS: Menthol/Lanolin/Calamine/Znox 113 GM Tube 1 APPLIC TOPICAL ×2 (05:04→22:24)
[2020-07-16] MEDS: Nystatin Powder 15gm Bottle 1 APPLIC TOPICAL ×2 (05:05→22:24)
[2020-07-16 06:26] LABS: Bedside Glucose 101 mg/dL (70-110)
[2020-07-16] MEDS: Jevity 1.5. 1,000 ML Bottle 400 ML GT ×3 (10:13→18:23)
[2020-07-16 13:18] VITALS: BP 113/76; PULSE 92; RESP 16; TEMP 36.6; O2SAT 97
[2020-07-16 17:37] VITALS: PULSE 92
[2020-07-16] MEDS: Latanoprost 0.005% 1 Bottle 1 DRP EACH EYE (22:23)
[2020-07-16] MEDS: Mirtazapine 15 MG Tablet 7.5 MG PO (22:23)
[2020-07-16 22:34] VITALS: PULSE 60; RESP 16; O2SAT 95
[2020-07-17 04:47] VITALS: BP 136/77; PULSE 74; RESP 16; TEMP 36.7; O2SAT 95
[2020-07-17] MEDS: Menthol/Lanolin/Calamine/Znox 113 GM Tube 1 APPLIC TOPICAL ×2 (04:47→21:03)
[2020-07-17] MEDS: Polyethylene Glycol 3350 17 GM PACKET PO (04:48)
[2020-07-17] MEDS: Nystatin Powder 15gm Bottle 1 APPLIC TOPICAL ×2 (04:48→21:03)
[2020-07-17] MEDS: levETIRAcetam 1,000 MG Tablet 1000 MG PO ×2 (04:49→17:37)
[2020-07-17] MEDS: Valproic Acid 250 MG/5 ML UDC PO ×2 (04:49→17:37)
[2020-07-17] MEDS: Famotidine 20 MG Tablet PO ×2 (04:49→17:37)
[2020-07-17] MEDS: amLODIPine 5 MG Tablet PO (04:49)
[2020-07-17] MEDS: Haloperidol 1 MG Tablet PO ×3 (04:49→20:58)
[2020-07-17 04:50] VITALS: BP 136/77; PULSE 74
[2020-07-17] MEDS: Metoprolol Tartrate 50 MG Tablet PO ×2 (04:50→17:37)
[2020-07-17] MEDS: Clopidogrel Bisulfate 75 MG Tablet PO (04:51)
[2020-07-17] MEDS: FLUoxetine 10 MG Capsule PO (04:51)
[2020-07-17 06:21] LABS: Bedside Glucose 101 mg/dL (70-110)
[2020-07-17 09:07] VITALS: PULSE 74; RESP 16; O2SAT 95
[2020-07-17 14:37] VITALS: BP 110/78; PULSE 82; RESP 14; TEMP 36.3; O2SAT 95
[2020-07-17 17:37] VITALS: PULSE 82
[2020-07-17] MEDS: Mirtazapine 15 MG Tablet 7.5 MG PO (20:57)
[2020-07-17] MEDS: Latanoprost 0.005% 1 Bottle 1 DRP EACH EYE (20:59)
[2020-07-18 05:57] LABS: Absolute Lymphocyte Count 2.67 X10^3/uL (0.83-4.51); Absolute Neutrophil Count 4.4 X10^3/uL (2.0-7.7); Basophil# 0.05 X10^3/uL; Basophil% 0.6 % (0-1); Eosinophil# 0.19 X10^3/uL; Eosinophils% 2.3 % (0-5); Hematocrit 46.7 % (40-54); Hemoglobin 14.6 g/dL (13.0-16.5); Lymphocyte # 2.67 X10^3/ul (4.0); Lymphocyte % 32.7 % (19-41); Mean Corp Hgb Conc 31.3 g/dL (32-36); Mean Corpuscular Hgb 27.1 pg (27.0-32.0); Mean Corpuscular Volume 86.8 fL (80-94); Mean Platelet Vol. 9.2 fl (6.2-12.0); Monocyte# 0.84 X10^3/uL; Monocyte% 10.3 % (0-10); NRBC Flagged by Analyzer 0 % (0-5); Neutrophil # 4.39 X10^3/uL (2.7-7.7); Neutrophil % 53.7 % (47-70); Platelet Count 383 K/mm3 (150-450); RBC Distribution Width CV 13.2 % (11.6-14.6); RBC Distribution Width SD 41.2 fl (35.1-43.9); Red Blood Count 5.38 M/mm3 (4.6-6.2); White Blood Count 8.2 K/mm3 (4.4-11.0)
[2020-07-18 06:30] LABS: Anion Gap 4 (5-15); BUN 13 mg/dL (7-18); BUN/Creat Ratio 17.6 RATIO (10-20); Calcium,Total 9.4 mg/dL (8.5-10.1); Chloride 104 mmol/L (98-107); Creatinine, Serum 0.74 mg/dL (0.70-1.30); EST Glomerular Filtration Rate 116 mL/min (>60); Est Glom Filt Rate - Afr Amer 140 mL/min (>60); Estimated Creatinine Clearance 117.97 ml/min; Glucose 91 mg/dL (74-106); Potassium 3.8 mmol/L (3.5-5.1); Sodium Level 136 mmol/L (136-145)
[2020-07-18 06:35] LABS: Bedside Glucose 109 mg/dL (70-110)
[2020-07-18] MEDS: amLODIPine 5 MG Tablet PO (06:48)
[2020-07-18] MEDS: Valproic Acid 250 MG/5 ML UDC PO (06:48)
[2020-07-18] MEDS: Clopidogrel Bisulfate 75 MG Tablet PO (06:48)
[2020-07-18] MEDS: FLUoxetine 10 MG Capsule PO (06:48)
[2020-07-18 06:49] VITALS: BP 126/88; PULSE 68
[2020-07-18] MEDS: Famotidine 20 MG Tablet PO (06:49)
[2020-07-18] MEDS: levETIRAcetam 1,000 MG Tablet 1000 MG PO (06:49)
[2020-07-18] MEDS: Metoprolol Tartrate 50 MG Tablet PO (06:49)
[2020-07-18] MEDS: Haloperidol 1 MG Tablet PO ×2 (06:49→13:00)
[2020-07-18] MEDS: Menthol/Lanolin/Calamine/Znox 113 GM Tube 1 APPLIC TOPICAL (06:55)
[2020-07-18] MEDS: Nystatin Powder 15gm Bottle 1 APPLIC TOPICAL (06:56)
--- NOTE | 2020-07-18 10:38 | NURSING ---
on 07/17/2020 Resident had outdoor visit with son, Bigg, friend Giuliana and son Francisco. Res recognized all, able to verbalize I love you and various curse words. Smiled, tearful at times when talking with Bigg. Reminded resident that son will be out of town this week, but will attempt to do facetime calls. Friend, Jeff intends to visit if resident is not discharged.
[2020-07-18 10:40] VITALS: PULSE 60; RESP 18; O2SAT 96
--- NOTE | 2020-07-18 10:55 | CASEMGMT ---
Social Work [facility] contacted SW and explained they would need to have a [id number] meeting with the son to discuss any other assets the pt may have to ensure he would qualify for Medicaid after the 401k is liquidated, a check for 30 days up front, and would need to submit for precert to [facility] to get an official deny all before accepting pt. Which will not happen on this date as son is out of town and does not have access to pt's finances. Contacted [facility] to f/u on referral. Admissions not available. Will continue to attempt. Will continue to follow. CEASAR MichaudW
--- NOTE | 2020-07-18 11:52 | NURSING ---
wound photo: back
[2020-07-18] MEDS: Senna/Docusate Sodium 1 Tablet PO (12:49)
[2020-07-18 13:00] VITALS: BP 127/93; PULSE 102; RESP 18; TEMP 36.7; O2SAT 98
--- NOTE | 2020-07-18 13:06 | CASEMGMT ---
Social Work [facility] able to accept and so is [facility]. Spoke with son and updated on insurance information and accepting SNFs. Son prefers [facility] since it is in network with [place] and closer to home. Since son is out of town, his friend is able to produce check for 30 days up front to [facility]. Scheduled cot transport with [facility] for 4 pm. Notified [facility]. Completed PASRR. Faxed DC info. Plan: [facility] 07/18 at 4 pm. CEASAR MichaudW
[2020-07-18 14:34] VITALS: BP 127/93; PULSE 102; RESP 18; TEMP 36.7; O2SAT 98
--- NOTE | 2020-07-18 14:42 | CHAPLAIN ---
Type of Pastoral Visit ___ Initial Visit _x__ Follow-up Visit ___ On-call Visit ___ General Patient Visit ___ Spiritual Assessment ___ Family Conference ___ Bereavement ___ Rapid Response ___ Code Blue ___ Other (describe below) Pastoral Care Referral From ___ Patient ___ Family ___ Nurse ___ Physician ___ Director Strategic Account Management ___ Lens Assorter _x__ Other (describe below) Sacrament/Intervention ___ Active listening ___ Anointing ___ Islam ___ Bereavement ___ Communion ___ Laura exploration ___ ___ Life review ___ Prayer ___ Reconciliation ___ Sacrament of Sick _x__ Supportive presence ___ Wedding ___ Other (describe below) Pastoral Comments greeted patient in open area as he was seated at table; sat a few minutes with him as he spoke name of his friend Jeff over and over
--- NOTE | 2020-07-18 16:16 | NURSING ---
Called report to [facility], spoke with Michelle.
== END 2020-07-18 16:30 | disposition intermediate care facility (04) | DRG 561 ==
PROVIDERS: Admitting Provider Family Medicine Geriatric Medicine; Visit Provider Family Medicine Geriatric Medicine
DX: S22.42XD Multiple fractures of ribs, left side, subsequent encounter for fracture with routine healing (principal); V29.9XXD Motorcycle rider (driver) (passenger) injured in unspecified traffic accident, subsequent encounter; I25.10 Atherosclerotic heart disease of native coronary artery without angina pectoris; G47.33 Obstructive sleep apnea (adult) (pediatric); S06.5X9D Traumatic subdural hemorrhage with loss of consciousness of unspecified duration, subsequent encounter; S27.2XXD Traumatic hemopneumothorax, subsequent encounter; S36.039D Unspecified laceration of spleen, subsequent encounter; S37.019D Minor contusion of unspecified kidney, subsequent encounter; Z23 Encounter for immunization; F17.210 Nicotine dependence, cigarettes, uncomplicated; G40.909 Epilepsy, unspecified, not intractable, without status epilepticus; H40.9 Unspecified glaucoma; K21.9 Gastro-esophageal reflux disease without esophagitis; F91.9 Conduct disorder, unspecified; I10 Essential (primary) hypertension; F32.9 Major depressive disorder, single episode, unspecified
CPT/HCPCS: 36415; 74018; 74230; 80048; 82962; 85025; 87635; 92507; 92523; 92526; 92610; 92611; 94799; 97110; 97112; 97163; 97166; 97530; 97535; 97802; 97803; 99406; 90670; 90686; U0003